=== PATIENT | female | born 1950 | race Hispanic/Latino ===

== ENCOUNTER 2018-02-16 07:53 | Day surgery (SDC) | payer OTHER, MEDICARE, SELFPAY ==
[2018-02-16] VITALS (7 sets, daily range): BP systolic 102–131; BP diastolic 52–74; PULSE 55–80; RESP 14–18; TEMP 36.4–36.8; O2SAT 95–100; BMI 29.3
--- NOTE | 2018-02-16 | COLBX_PTH ---
PATIENT: SANTIAGO CHRISTIE LOC: EN U#:[id number] AGE/SX: 67/F ROOM: RE02/16/[address]: Dr. Janes Chiu MD : 1950 BED: DIS: 02/16/2018 SPEC #: [id number] RECD: 02/16/18 11:15 STATUS: ISAEL PALMERJúnior #: [id number] ANTHONY: 02/16/18 00:[address]: Janes Chiu DEPT: SURGICAL PATHOLOGY RECD BY: Mc Laguna ENTERED: 02/16/18 13:26 SP TYPE: COLON BX OTHR DR: Dr. Jeff Chiu III, MD Tissues: Rectum, NOS Procedures: Surgery Specimen Level IV HEADER OPERATION: Colonoscopy PRE-OP DIAGNOSIS: Personal history colon CA TISSUE SUBMITTED: Rectal polyp biopsy MICROSCOPIC DIAGNOSIS Rectal polyp, biopsy: Fragments of hyperplastic polyp. SJ:enoch 02/17/18 COMMENT Please make reference to previous specimen ([id number]) sigmoid colon, colectomy with diagnosis of invasive moderately differentiated adenocarcinoma. MICROSCOPIC DESCRIPTION Slides are reviewed. GROSS DESCRIPTION Received in fixative is one container labeled with the patient's name and designated rectal polyp biopsy. The specimen consists of multiple irregular fragments of light sharpe soft tissue that in aggregate measure 0.7 x 0.3 x 0.2 cm. The specimen is totally submitted in one cassette. / RY:enoch 02/16/18 TC:1 CPT: 79752
--- NOTE | 2018-02-16 09:57 | PCM.HP.STD ---
Problem List (1) Personal history of colon cancer Status: Acute History of Present Illness Date of Admission: 02/16/18 The patient is a 67 year old F who has been feeling well. 2009 I did a left scopic sigmoid colectomy for colon cancer. Her most recent colonoscopy was 2013. A sessile polyp of the sigmoid colon was identified. She denies any abdominal pain. She denies bright red blood per rectum or melena. She has a good appetite. She presents today via the open access program. Past Medical History Allergies adhesive Allergy (Verified 02/10/18 14:44) Rash poison karla extract [Poison Karla Extract] Allergy (Verified 02/10/18 14:44) Hives skylar Adverse Reaction (Verified 02/16/18 08:25) Rash IODINE TOPICAL Allergy (Uncoded 02/10/18 14:44) Rash METAL Adverse Reaction (Uncoded 02/10/18 14:44) Rash Home Medications: Ambulatory Orders Medication Instructions Recorded Glucosamine/MSM/Chondroitin A 1 each PO DAILY 04/15/17 [Glucosamine Chondroit MSM Tab] Levothyroxine [Synthroid] 50 mcg PO DAILY 04/15/17 Polyethylene Glycol 3350 [Miralax] 17 gm PO DAILY PRN 04/15/17 L.acidoph,Paracasei, B.lactis 1 each PO DAILY 02/10/18 [Probiotic] Surgical History: - - 2009: Laparoscopic sigmoid colectomy Smoking Status: Never smoker Review of Systems Constitutional: Denies: Anorexia HEENT: Denies: Difficulty Hearing Cardiovascular: Denies: Chest Pain Respiratory: Denies: Cough Gastrointestinal: Denies: Abdominal Pain Genitourinary: Denies: Dysuria VTE Information - Inpt Only VTE Present on Admission: No Patient Problems: Active and Suspected Problems Personal history of colon cancer (Acute) - Physical Exam General: Alert, Oriented x3, Cooperative, No apparent distress HEENT: Atraumatic Oral: Moist Mucosa Neck: Supple Lungs: Clear to auscultation Cardiovascular: Regular rate, Regular Rhythm Abdomen: Bowel Sounds Present, Soft, Non Tender Extremities: No clubbing Skin: No rashes Musculoskeletal: No Tenderness to Palpation of Joints or Extremities Neurological: Cranial nerves II-XII grossly intact Vital Signs Temp Pulse Resp BP Pulse Ox 98.3 F 80 14 131/74 H 100 02/16/18 08:26 02/16/18 08:26 02/16/18 08:26 02/16/18 08:26 02/16/18 08:26 Oxygen Delivery Method Room Air Weight: 165 lb 9.074 oz Body Mass Index (BMI) 29.3 Assessment/Plan Active and Suspected Problems Personal history of colon cancer (Acute) I plan to proceed with a colonoscopy with possible biopsy or polypectomy is indicated. The patient is aware the technique, benefits, risks, alternatives. She has had an opportunity to ask and have questions answered. We will proceed as noted. Janes Chiu M.D., F.A.C.S.
--- NOTE | 2018-02-16 10:24 | PCM.OPRPT ---
Problem List (1) Personal history of colon cancer Status: Acute Report of Operation Date of Procedure: 02/16/18 Pre-Operative Diagnosis: Personal history of colon cancer Post-Operative Diagnosis: Patent colorectal anastomosis. Diminutive sessile polyp of the rectum. Scattered sigmoid diverticulosis Surgery/Procedure Performed:: Colonoscopy with cold forcep rectal polypectomy Description of Surgical Findings:: Timeout and informed consent was obtained. 67-year-old female was taken to the endoscopy room. She was placed in a left lateral decubitus position. Monitored anesthesia care was provided by Darrin Pena. Digital rectal exam performed. Moderate hemorrhoidal changes. No mass lesions. Flexible colonoscope inserted in the rectum and readily advanced to the anastomosis. The scope was advanced through the descending transverse and then the patient had to be placed supine with transabdominal pressure to get scope to go to the cecum. The cecum ileocecal valve was nicely achieved. Bowel prep was adequate. There was still some liquidy stool particularly in the left side of the colon that had to be irrigated and aspirated free. The cecum ileocecal valve was nicely achieved. The scope was carefully withdrawn through the ascending transverse and descending colon. Sigmoid diverticulosis was identified. No evidence of acute inflammatory change. The widely patent colorectal anastomosis was located at approximately 10 cm. In the mid rectum that there was a diminutive 5 mm sessile benign-appearing polyp. Cold forceps was used to sample and eradicate that lesion. Hemorrhoidal changes noted. No active bleeding. The procedure was completed with the patient tolerating it well. Impression Widely patent colorectal anastomosis without evidence of recurrence Diminutive sessile polyp of the rectum likely benign Scattered sigmoid diverticulosis Because of the patient's personal history of colon cancer likely will recommend a follow-up colonoscopy in 3 years. Previous colonoscopy was 2013. Her colectomy was in 2009. The patient will be notified of pathology results as they become available. She presented via open access Cc: Dr. Jeff Chiu, III The procedure was initiated at 1005. The cecum was reached at 1011. Procedure was completed at 1019. Janes Chiu M.D., F.A.C.S. Type of Anesthesia:: MAC
== END 2018-02-16 11:22 | disposition home or self-care (01) ==
LOC: EN 07:55 → AC 07:57
PROVIDERS: Family Provider Family Medicine; PCP Family Medicine; Visit Provider Surgery
PROC: 0DJD8ZZ Inspection of Lower Intestinal Tract, Via Natural or Artificial Opening Endoscopic (ICD-10-PCS; CPT 45378; principal; 2018-02-16 09:10)
DX: K62.1 Rectal polyp (principal); K57.30 Diverticulosis of large intestine without perforation or abscess without bleeding; Z85.038 Personal history of other malignant neoplasm of large intestine
CPT/HCPCS: 45380; 88305; J7120

== ENCOUNTER → 2019-01-03 08:25 | Outpatient (CLI) | payer MEDICARE, OTHER, SELFPAY ==
--- NOTE | 2019-01-03 08:30 | CT_ITS ---
HISTORY: LEFT CHEST MASS, HX COLON CANCER TECHNIQUE: Helically acquired images were obtained of the chest following IV contrast. A radiation dose optimization technique was used for this scan. IV Contrast dosage and agent: 100 cc Isovue-300 contrast COMPARISON: CTA chest 02/04/2015 FINDINGS: Mild linear scarring or subsegmental atelectasis at the anterior and anterolateral left lung base. No pulmonary nodule or suspicious lesion. No pulmonary infiltrate, pleural effusion, or significant pleural disease. No bronchiectasis. No hilar, mediastinal, or axillary lymph node enlargement. Thoracic aorta is normal in caliber. No pericardial effusion. The adrenal glands are not enlarged. Scattered small hepatic cysts which appear stable. The chest wall appears intact. No suspicious bony lesion seen. CT/Chest WITH Contrast IMPRESSION: 1. No metastatic lung disease or suspicious lesion identified. 2. Left basilar minor scarring or subsegmental atelectasis. 3. Small hepatic cysts, unchanged. Individualized dose optimization techniques were used for this CT. at 0641 Reported and signed by: Eric Lee MD Electronically Signed: Eric Lee, at 6:40 EST Tel , Service support ,
[2019-01-03 08:46] LABS: CREATININE FINGERSTICK 0.8 mg/dL (0.55-1.02)
== END ==
LOC: CT 08:27
PROVIDERS: Family Provider Family Medicine; PCP Family Medicine; Referring Provider Surgery; Visit Provider Surgery
DX: R22.2 Localized swelling, mass and lump, trunk (principal); Z85.038 Personal history of other malignant neoplasm of large intestine
CPT/HCPCS: 71260; Q9967

== ENCOUNTER → 2019-08-16 14:40 | Outpatient (CLI) | payer MEDICARE, OTHER, SELFPAY ==
[2019-08-16 13:47] VITALS: BMI 29.3
== END ==
PROVIDERS: Family Provider Family Medicine; PCP Family Medicine; Referring Provider Physician Assistant; Visit Provider Physician Assistant
DX: L72.3 Sebaceous cyst (principal); L08.9 Local infection of the skin and subcutaneous tissue, unspecified
CPT/HCPCS: 87070; 87205

== ENCOUNTER → 2019-12-29 08:35 | Outpatient (CLI) | payer MEDICARE, OTHER, SELFPAY ==
[2019-12-29 08:12] VITALS: BMI 28.5
[2019-12-29 09:03] LABS: Hematocrit 40.7 % (37-47); Hemoglobin 13.2 g/dL (12.0-15.0); Mean Corp Hgb Conc 32.4 g/dL (32-36); Mean Corpuscular Hgb 30.7 pg (27.0-32.0); Mean Corpuscular Volume 94.7 fL (81-99); Mean Platelet Vol. 9.2 fl (6.2-12.0); Platelet Count 248 K/mm3 (150-450); RBC Distribution Width CV 12.6 % (11.6-14.6); RBC Distribution Width SD 43.8 fl (35.1-43.9); White Blood Count 6.4 K/mm3 (4.4-11.0)
== END ==
PROVIDERS: PCP Family Medicine; Referring Provider Surgery; Visit Provider Surgery
DX: R19.7 Diarrhea, unspecified (principal); D64.9 Anemia, unspecified
CPT/HCPCS: 36415; 82274; 83630; 85027; 87493; 87506

== ENCOUNTER 2020-05-23 05:58 | Day surgery (SDC) | payer MEDICARE, OTHER, SELFPAY ==
[2019-12-29 08:12] VITALS: BMI 28.5
--- NOTE | 2020-05-10 16:08 | EKG12_ITS ---
Test Reason : PRE OP Blood Pressure : / mmHG Vent. Rate : 064 BPM Atrial Rate : 064 BPM P-R Int : 152 ms QRS Dur : 090 ms QT Int : 418 ms P-R-T Axes : 071 018 051 degrees QTc Int : 431 ms Normal sinus rhythm Nonspecific ST and T wave abnormality Abnormal ECG Confirmed by LISE SAHU, EDDIE ([id number]), film editor supervisor KARINA BENDER ([id number]) on 05/15/2020 11:14:41 AM Referred By: Carter Cota Confirmed By:EDDIE LEZAMA MD
--- NOTE | 2020-05-13 12:40 | HP.PCM_ITS ---
History and Physical History and Physical Patient Name: Julianne Ku : 1950 From: WILLOW FRANKS NP DATE OF SURGERY: 05/23/2020 SCHEDULED PROCEDURE: Minimally invasive robotic-assisted right total knee arthroplasty HISTORY OF PRESENT ILLNESS: Preoperative history and physical exam was performed on May 08, 2020. This is a 69-year-old female whose been having ongoing right knee pain for over 10 years. She describes the pain as intermittent, aching and sharp. The pain is 8 on a scale of 10. The pain is made worse with stairs, sitting for prolonged periods of time and walking. The patient reports inability to perform activities of daily living including dressing, housework and bathing. She lacks the inability to perform leisure activities such as walking. She does trip and stumble due to the pain in the knee. Previous conservative measures attempted include rest, home exercises and and nonsteroidal anti-inflammatories. She has also worn a brace with minimal relief report. The patient does ambulate with the use of a cane. The patient has been treated in the past for an abscess on her left upper chest with a staph infection. The patient states this is currently resolved. She denies fevers, chills, shortness of breath, difficulty breathing or recent infections. Surgical clearance has been obtained from Dr. Jeff Chiu III. the patient has a medical history pertinent for thyroid disease, difficulty hearing and history of colon cancer. The patient does report an allergy to adhesive including Band-Aids which causes a rash and blisters. She also states that she has a metal allergy and titanium implants will be necessary for the total knee arthroplasty. After failing conservative measures and discussing treatment options with Dr. Carter Cota the patient does wish to proceed with a right total knee arthroplasty. REVIEW OF SYSTEMS: ROS: Const: Reports change in appetite, but denies fever and weight change. CV: Denies chest pain, heart murmur and irregular heartbeat. Resp: Reports shortness of breath, but denies cough, pneumonia, tuberculosis and wheezing. GI: Denies constipation, diarrhea, heartburn, nausea, rectal itching, bloody stools and vomiting. : Denies incontinence. Musculo: Reports leg swelling, pain and trouble walking, but denies weakness. Skin: Denies Raynaud's, history of shingles and tattoo. Neuro: Denies ambulatory dysfunction, dizziness, numbness/tingling and tremor. Psych: Denies anxiety, insomnia and stress. Nils/Lymph: Denies anemia, bleeding/bruising tendency and past transfusion. Reviewed and updated. PAST MEDICAL HISTORY: Advance Care Plan: Other Directive, POA Effective Date: 04/14/2019 Other Directive, LIVING WILL Effective Date: 04/14/2019 PMH: Medical Problems: Cancer, Hard of Hearing, Thyroid Disease, Vision Problems/Blind Accidents: None Surgical Hx: Colon Resection - Dr. Rose Chiu @ [facility] Gallbladder - (1982) [facility] Bilat Ears, Cyst Removal - Ovaries, Colon Cancer Anesthesia Complications: None Assistive Devices: Glasses, Dentures, Cane - occasionally Reviewed, no changes. SOCIAL HISTORY: SH: Marital: .Occupation: Retired.Work Status: Retired.Hand Dominance: Left- handed. Personal Habits: Cigarette Use: Former.Smokeless Tobacco: Never Used Smokeless Tobacco.E-Cigarette Use: Never used.Alcohol: Weekly use.Drug Use: Denies Use.Enjoy Exercising: Exercises 1-3 X/Week. Reviewed, no changes. VITALS: Ht: 63 Wt: 167lb Wt k.751 BMI: 29.6 BP: 126/86 Pulse: 60 T: 97.1 T: 36.2C ALLERGIES: Dye With MRI Ivpdye Adhesives Metals MEDICATIONS: Famotidine 20 mg 1 by mouth every day, Promethazine HCL 12.5 mg 1-2 tablets by mouth every 6 hours, Oxycodone HCL 5 mg 1-2 tab by mouth every 4 hours, Naproxen 500 mg take 1 tablet by mouth twice daily as needed for pain, Levothyroxine Sodium 100 mcg take 1 tablet by mouth every day on empty stomach for thyroid, Glucosamine Chondroitin 500 Complex 500 Comp 1po qday, [place] 3 500 500 mg 1 tab by mouth daily, Probiotic 1 tab by mouth daily, Methylsulfonylmethane 2po qday, Vitamin D3 25 mcg (1000 Ut) 2 by mouth daily PRE-OP EXAM: General appearance:NORMAL Other: Eyes: Conjunctivae and lids: NORMAL Pupils: ERR Ears, Nose, Mouth, and Throat: NORMAL Other: Inspection of lips, teeth and gums: NORMAL Other: Respiratory: Assessment of respiratory effort: NORMAL Other: Auscultation of lungs: clear to auscultation no wheezes, rhonchi or rales. Cardiovascular: Auscultation of heart: regular rate and rhythm, no murmurs, gallops or rubs. Gastrointestinal: Exam of abdomen: soft, nontender, nondistended bowel sounds present. Neurological: see below Psychiatric: Orientation to time, place and person: NORMAL Other: Mood and affect: NORMAL Other: PHYSICAL EXAMINATION: Patient ambulates with an antalgic gait. Moderate effusion. Skin is warm, dry and intact. Tenderness over the medial joint line with palpation. Correctable varus alignment. Stable to varus and valgus stress. Range of motion: Lacks 5 extension to 95 flexion. Sensation intact to light touch. IMAGING STUDIES: 4 views of right knee including sunrise and lateral and bilateral weight-bearing AP and tunnel views obtained on April 02, 2020 reveal the right knee with varus alignment and medial joint space narrowing, subchondral sclerosis and osteophyte formation consistent with severe tricompartmental osteoarthritis. No lytic or blastic lesions appreciated. IMPRESSION: 1. Unilateral primary osteoarthritis, right knee 2. Varus deformity, right knee 3. Thyroid disease 4. History of colon cancer PLAN: Dr. Carter Cota did discuss and review with the patient all treatment options including surgical versus nonsurgical. The patient does wish to proceed with the above-stated procedure. Potential risk, benefits and complications of the procedure were discussed in detail including but not limited to , infection, nerve and blood vessel damage, persistent pain, numbness, tingling, paresthesia, blood clot, pulmonary embolism and requirement for possible further surgery. The patient expressed full understanding and has no further questions for the doctor. The patient does agree to proceed with the above-stated procedure and has signed the surgery consent form. The patient was given prescriptions for the following medications at her preoperative visit: Oxycodone, promethazine and famotidine. She was instructed to mushroom picker [id number] aspirin 81 mg, extra strength Tylenol 500 mg and senna. She was instructed to bring a walker to the hospital the day of surgery. The patient does have an adhesive allergy. She states that Band-Aids give her a rash and blisters. She also has an allergy to metal. We will proceed with titanium knee implants. Discussed with the patient the risks associated with the COVID-19 virus including the risk of exposure while at the hospital. The patient was reassured local hospitals have low infection rates and taken all necessary precautions to limit patient exposure to COVID-19. Limiting the patient's time in the hospital may decrease their exposure to COVID-19. The patient was notified that we will need to comply with any screening or testing the hospital wishes to perform and that surgery may be delayed for any positive test results. I have reviewed the [place] Automated Rx Reporting System (OARRS) report for this patient for refill pattern and other prescriber involvement as part of the appropriate surveillance for the provision of acute and chronic controlled medications. The report was requested and reviewed on the date of this entry and was considered in the prescribing process. This dictation was created using voice recognition software. Phonetic and/or grammatical errors may exist. ___ I have re-examined the patient. There are no clinical changes since date of exam. ___ See progress notes for changes. ___ Dictated on admission Date: Time: Signature:
[2020-05-23] VITALS (13 sets, daily range): BP systolic 89–150; BP diastolic 41–76; PULSE 76–87; RESP 16–20; TEMP 36–37.1; O2SAT 93–100; BMI 29.4
[2020-05-23] MEDS: Acetaminophen 500 MG Tablet 1000 MG PO ×2 (06:49→14:46)
[2020-05-23] MEDS: Gabapentin 600 MG Tablet PO (06:49)
[2020-05-23] MEDS: Celecoxib 200 MG Capsule 400 MG PO (06:49)
[2020-05-23] MEDS: Lactated Ringers 1,000 ML 100 ML IV (06:53)
[2020-05-23 07:21] LABS: Bedside Glucose 108 mg/dL (70-110)
[2020-05-23] MEDS: Scopolamine 1mg/72hr Patch 1 PATCH TD (07:31)
[2020-05-23] MEDS: Cefazolin 2 GM in 0.9% Normal Saline 100 ML IV (08:00)
[2020-05-23] MEDS: dexAMETHasone 10 MG/ML Vial IV (08:10)
--- NOTE | 2020-05-23 09:35 | OP.PCM_ITS ---
Report of Operation Date of Procedure: 05/23/20 Pre-Operative Diagnosis: Right knee primaryosteoarthritis. Metal allergy Post-Operative Diagnosis: Right knee primaryosteoarthritis. Metal allergy Surgery/Procedure Performed:: Computer navigated minimally invasive right total knee replacement Description of Surgical Findings:: Stable knee with good patella tracking terrazzo polisher: Darcy Maier Type of Anesthesia:: Spinal Anesthesiologist: José Mac Special Medications: 2 g Ancef, 1 g TXA at incision, 1 g TXA closure, 10 mg Decadron, joint cocktail (5 mg Duramorph, 30 mL of 0.5% Ropivicaine, 1000 units of epinephrine, 30 mg of Toradol) Specimen's removed: Bony cuts Estimated Blood Loss (mL): 25 Fluids Replaced: 1500 mL crystalloid Description of Procedure: Implants used: 1. Biomet Vanguard titanium size 60 cruciate retaining distal femoral component 2. Biomet Vanguard 71 mm tibial baseplate 3. Jorje Vanguard vivacit-e 10 mm anterior stabilized polyethylene 4. Jorje Biomet 34 mm symmetric patella Brief history operative indications: 69-year-old f with history of right knee osteoarthritis with radiographic findings with loss of joint space, osteophyte formation and subchondral sclerosis. Failed conservative measures as mentioned in the H&P. Discussion of total knee arthroplasty as well as risk and benefits were discussed the patient including but not limited to blood loss, DVTs, PEs, neurovascular damage, genera l risk of anesthesia including loss of life, and stiffness or instability were discussed with patient. Patient demonstrated understanding and was able to sign informed consent. Procedure: On the date of procedure patient's right lower extremity was marked in the preoperative area. The patient was then taken back to the operating room where the patient was placed on the table in the supine position. All bony prominences were identified a well-padded. Anesthesia assumed control of the C-spine and airway and remained controlled throughout the remainder of the procedure. A tourniquet was placed on the right upper thigh and the leg was prepped in a sterile fashion. The surgeon then scrubbed at this time. Upon reentering the room the right lower extremity was draped in a standard orthopedic fashion. A timeout was then called and everyone agreed upon the side, the site, the procedure to be performed, patient's identity and antibiotics given. Esmarch bandage was used to exsanguinate the extremity and the tourniquet was placed up to 250 mmHg with the knee in flexion. A midline skin incision was made and sharp dissection was taken down through skin subcutaneous tissue and fat. The standard medial parapatellar incision was made and the patella was subluxed laterally. The standard deep MCL release was done and the fat pad was resected. Next our attention was directed to the femur. Navigation pins were placed, navigation was registered. The distal femoral cutting block was pinned into place and 9 mm of distal femur resection was completed. The distal femoral cut was verified with navigation. The knee was then placed in deep flexion in the standard [employer] sizing guide was used to place the femoral component in 3? external rotation based on the posterior condyles. A size 60 4-in-1 cutting block was selected and pinned into place. The anterior cut was then made and checked for notching. The subsequent anterior chamfer cuts, posterior condylar cuts and posterior chamfer cuts were made while ensuring the MCL and LCL were protected. Our attention was then turned to the tibia where the navigation pins were placed, navigation was registered. [employer] tibial cutting guide was used to make the appropriate tibial cut 90 degrees from the mechanical axis. Navigation was then used to verify the cut. A size 71mm tibial base plate was selected. the knee was flexed to 90 degrees and the soft tissues and posterior osteophytes were removed from the joint. 40 cc of the periarticular injection was injected into the posterior medial corner of the joint. The appropriate trials were then placed on the femur and tibia. A trial polyethylene was trialed to ensure proper balancing and stability of the knee. Patella tracking, was then verified and corrected appropriately as needed. The appropriate tibial internal rotation was then marked with a bovie. Our attention was then directed to the patella. The patella was everted and a flat resection was made. The lug holes were drilled and the patella trial was placed. Patellar tracking was checked and deemed appropriate. Once we were happy lug holes were drilled for the femur and trial components were removed. the tibia was subluxed and pinned into place and the keel was punched and the canal was reamed. Final components were verified and opened, and cement was mixed in a vacuum. Angelika Simplex cement was used. The wound was copiously irrigated with normal saline. When the cement was ready the components were cemented into place starting with the tibia, femur and finally the patella. The trial poly component was placed and the knee was placed in full extension. All excess cement was removed in the process. Once the cement had cured the tracking, alignment and balance were verified and a size 10 mm polyethylene component was placed. Once the final components were placed the wound was copiously irrigated with normal saline solution and the periarticular injection was given. The wound was closed in a layer shukla fashion using #1 vicryl interrupted sutures for the arthrotomy, 2-0 interrupted Vicryl suture for the subcuticular layer and peyton for final skin closure. A sterile compressive dressing was then placed. The patient was then awakened from anesthesia, transferred to the [place] and transferred to the PACU for recovery. Post op plan DVT ppx: ASA 1 mg twice daily, thigh high compression stockings Follow up: in office in 2 weeks for wound check PT: to start POD #0 at hospital, outpatient PT should be arranged. Grafts/Implants Used: Biomet Vanguard titanium - Complications No intraoperative complications - Admit VTE Documentation VTE Present on Admission: No VTE Mechan Device Prophylaxis: SCD's, Thigh High LÁZARO Hose VTE Pharm Prophylaxis ordered?: Yes
[2020-05-23] MEDS: Lactated Ringers 1,000 ML 500 ML IV ×2 (10:11→11:32)
--- NOTE | 2020-05-23 10:11 | RAD_ITS ---
STUDY: X-RAY - RIGHT KNEE REASON FOR EXAM: Female, 69 years old. POST OP TECHNIQUE: AP and lateral view(s) of the knee. COMPARISON: None. FINDINGS: Normal visualized distal femur. Normal visualized proximal tibia and fibula. Normal proximal tibiofibular articulation. The patient is status post total knee replacement. There is good alignment. Postoperative soft tissue changes. RAD/Knee 1 or 2 Views IMPRESSION: Status post total knee replacement. There is good alignment. Postoperative soft tissue changes. Electronically Signed: oHwie Lock, at 13:01 EDT , Service support ,
[2020-05-23] MEDS: Cefazolin 1 GM/50 ML BAG IV (14:20)
== END 2020-05-23 16:16 | disposition home or self-care (01) ==
LOC: SDC 05:59 → AC 05:59
PROVIDERS: Anesthesiology; PCP Family Medicine; Referring Provider Specialist; Visit Provider Specialist
PROC: (CPT 27447; principal; 2020-05-23 07:30)
DX: M17.11 Unilateral primary osteoarthritis, right knee (principal); E07.9 Disorder of thyroid, unspecified; M21.161 Varus deformity, not elsewhere classified, right knee; Z79.1 Long term (current) use of non-steroidal anti-inflammatories (NSAID); Z85.038 Personal history of other malignant neoplasm of large intestine
CPT/HCPCS: 27447; 73560; 82962; 87081; 87635; 93005; 97162; 97166; C1776; G2023; J7120; A4216; J2405; U0003

== ENCOUNTER 2021-03-13 05:25 | Day surgery (SDC) | payer MEDICARE, OTHER, SELFPAY ==
[2020-05-23 06:31] VITALS: BMI 29.4
--- NOTE | 2021-02-18 12:40 | PCM.HP.BLA ---
History and Physical History and Physical [facility] Patient Name: Julianne Ku : 1950 From: SUNSHINE MCKEON PA-C DATE OF SURGERY: 03/13/2021 SCHEDULED PROCEDURE: left total knee arthroplasty HISTORY OF PRESENT ILLNESS: Preoperative history and physical exam was performed on February 18, 2021. This is a 70-year-old female who is been having ongoing pain in the left knee for several months. Her pain can reach 10/10 with activities. Pain has been constant, sharp. Pain is increased with going up and down stairs and walking. Patient's pain is primarily over the medial aspect of the knee. Pain does awaken her at night. She has difficulty with any activities of daily living that require bending of her knee. She feels unsafe climbing stairs. She has attempted conservative measures including rest, heat, elevation with minimal relief. She has been through physical therapy and home exercises with minimal relief. She has been on oral nonsteroidal anti-inflammatories including meloxicam with minimal relief. She has had a previous right total knee arthroplasty on May 23, 2020 and is doing well postoperatively. She denies any previous surgical intervention on her left knee. Denies any recent chest pain, shortness of breath, fevers chills, or recent infections. She has medical history pertinent for thyroid disease. We are obtaining surgical clearance from the primary care physician Dr. Chiu. After failing conservative measures and discussing all treatment options with Dr. Carter Cota, the patient does wish to proceed with a left total knee arthroplasty. REVIEW OF SYSTEMS: ROS: Const: Reports change in appetite, but denies fever and weight change. CV: Denies chest pain, heart murmur and irregular heartbeat. Resp: Reports shortness of breath, but denies cough, pneumonia, tuberculosis and wheezing. GI: Denies constipation, diarrhea, heartburn, nausea, rectal itching, bloody stools and vomiting. : Denies incontinence. Musculo: Reports leg swelling, pain and trouble walking, but denies weakness. Skin: Denies Raynaud's, history of shingles and tattoo. Neuro: Denies ambulatory dysfunction, dizziness, numbness/tingling and tremor. Psych: Denies anxiety, insomnia and stress. Nils/Lymph: Denies anemia, bleeding/bruising tendency and past transfusion. Reviewed, no changes. PAST MEDICAL HISTORY: Advance Care Plan: Other Directive, POA Effective Date: 04/14/2019 Other Directive, LIVING WILL Effective Date: 04/14/2019 PMH: Medical Problems: Cancer, Hard of Hearing, Thyroid Disease, Vision Problems/Blind Accidents: None Surgical Hx: Colon Resection - Dr. Rose Chiu @ [facility] Gallbladder - (1982) [facility] Bilat Ears, Cyst Removal - Ovaries, Colon Cancer RT TKR - (05/23/2020) SAW @ [facility] Anesthesia Complications: None Assistive Devices: Glasses, Dentures Reviewed and updated. SOCIAL HISTORY: SH: Marital: .Occupation: Retired.Work Status: Retired.Hand Dominance: Left-handed. Personal Habits: Cigarette Use: Former.Smokeless Tobacco: Never Used Smokeless Tobacco.E-Cigarette Use: Never used.Alcohol: Weekly use.Drug Use: Denies Use.Enjoy Exercising: Exercises 1-3 X/Week. Reviewed, no changes. VITALS: Ht: 63 Wt: 170lb Wt k.112 BMI: 30.1 BP: 128/76 Pulse: 78 Resp: 14 T: 96.3 T: 35.7C Pain Level: 0 ALLERGIES: Dye With MRI Ivpdye Adhesives Metals MEDICATIONS: Oxycodone HCL 5 mg 1-2 tab by mouth every 4 hours, Promethazine HCL 12.5 mg 1-2 tablets by mouth every 6 hours, Famotidine 20 mg 1 by mouth every day, Meloxicam 7.5 mg take 1 tablet twice daily with food, Vitamin D3 25 mcg (1000 Ut) 2 by mouth daily, Levothyroxine Sodium 100 mcg 1 by mouth every day PRE-OP EXAM: General appearance:NORMAL Other: Eyes: Conjunctivae and lids: NORMAL Pupils: ERR Ears, Nose, Mouth, and Throat: NORMAL Other: Inspection of lips, teeth and gums: NORMAL Other: Neck: Examination of neck: no masses noted. Respiratory: Assessment of respiratory effort: NORMAL Other: Auscultation of lungs: clear to auscultation no wheezes, rhonchi or rales. Cardiovascular: Auscultation of heart: regular rate and rhythm, positive systolic murmur. Exam of carotid arteries: NORMAL Other: Gastrointestinal: Exam of abdomen: soft, nontender, nondistended bowel sounds present. PHYSICAL EXAMINATION: On exam of the left knee it is cool to touch without erythema or signs of infection. She has tenderness to palpation along the medial aspect of the knee. Varus alignment which is correctable on exam. Range of motion: Lacks 3 of full extension to 110 flexion. Sensation intact to light touch. Stable to anterior/posterior drawer. IMAGING STUDIES: Previous x-rays of the left knee reveal varus alignment with medial joint space narrowing, subchondral sclerosis, osteophyte formation consistent with severe stage IV tricompartmental osteoarthritis. There are bony erosions of the medial compartment. IMPRESSION: 1. Severe left knee tricompartmental osteoarthritis 2. Presence of right total knee arthroplasty 3. Thyroid disease 4. History of colon cancer PLAN: Dr. Carter Cota did discuss and review with the patient all treatment options including surgical versus nonsurgical options. Patient does wish to proceed with the above-stated procedure. Potential risks, benefits, and complications of the procedure were discussed in detail including but not limited to , infection, nerve and blood vessel damage, persistent pain, numbness, tingling, paresthesias, blood clot, pulmonary embolism, and requirement for possible further surgery. The patient expressed full understanding and has no further questions for the doctor. Patient does agree to proceed with the above-stated procedure and has signed the surgery consent form. We discussed the current risks associated with COVID 19. This does include the risk of exposure while in the hospital. Patient was reassured local hospitals have low infection rates and are taking all necessary precautions to avoid exposure to patients. In addition, we discussed strategies that can be used to help limit exposure including those that limit the patient's time in the hospital. Also using strategies to limit the patient's need for continued inpatient services after being discharged from the hospital. Patient was notified that we will need to comply with any screening or testing the hospital wishes to perform or that surgery may be delayed for any positive results. This dictation was created using voice recognition software. Phonetic and/or grammatical errors may exist. ___ I have re-examined the patient. There are no clinical changes since date of exam. ___ See progress notes for changes. ___ Dictated on admission Date: Time: Signature:
[2021-03-04 13:37] LABS: Absolute Lymphocyte Count 1.14 X10^3/uL (0.83-4.51); Absolute Neutrophil Count 5.1 X10^3/uL (2.0-7.7); Basophil# 0.02 X10^3/uL; Basophil% 0.3 % (0-1); Eosinophil# 0.04 X10^3/uL; Eosinophils% 0.6 % (0-5); Hematocrit 39.5 % (37-47); Hemoglobin 12.5 g/dL (12.0-15.0); Lymphocyte # 1.14 X10^3/ul (0.83-4.51); Mean Corp Hgb Conc 31.6 g/dL (32-36); Mean Corpuscular Hgb 30.2 pg (27.0-32.0); Mean Corpuscular Volume 95.4 fL (81-99); Mean Platelet Vol. 9.4 fl (6.2-12.0); Monocyte# 0.44 X10^3/uL; Monocyte% 6.6 % (0-10); NRBC Flagged by Analyzer 0 % (0-5); Neutrophil # 5.05 X10^3/uL (2.7-7.7); Neutrophil % 75.2 % (47-70); Platelet Count 225 K/mm3 (150-450); RBC Distribution Width CV 13.5 % (11.6-14.6); RBC Distribution Width SD 46.9 fl (35.1-43.9); Red Blood Count 4.14 M/mm3 (4.2-5.4); White Blood Count 6.7 K/mm3 (4.4-11.0)
[2021-03-04 14:10] LABS: Anion Gap 4 (5-15); BUN 15 mg/dL (7-18); BUN/Creat Ratio 16.3 RATIO (10-20); Calcium,Total 8.3 mg/dL (8.5-10.1); Chloride 106 mmol/L (98-107); Creatinine, Serum 0.92 mg/dL (0.55-1.02); EST Glomerular Filtration Rate 64 mL/min (>60); Est Glom Filt Rate - Afr Amer 77 mL/min (>60); Glucose 109 mg/dL (74-106); Potassium 3.4 mmol/L (3.5-5.1); Sodium Level 139 mmol/L (136-145)
[2021-03-04 14:28] LABS: Thyroid Stim Hormone (TSH) 0.98 uIU/mL (0.358-3.74)
[2021-03-05 12:02] LABS: Albumin, Serum 3.6 g/dL (3.2-5.0)
[2021-03-13] VITALS (11 sets, daily range): BP systolic 99–157; BP diastolic 51–95; PULSE 66–84; RESP 16–18; TEMP 36.1–37.3; O2SAT 93–100; BMI 30.2
[2021-03-13] MEDS: Gabapentin 600 MG Tablet PO (05:05)
[2021-03-13] MEDS: Celecoxib 200 MG Capsule 400 MG PO (06:10)
[2021-03-13] MEDS: Acetaminophen 500 MG Tablet 1000 MG PO ×2 (06:11→14:00)
[2021-03-13] MEDS: Lactated Ringers 1,000 ML 999 ML IV ×2 (06:11→10:31)
[2021-03-13 06:15] LABS: Bedside Glucose 104 mg/dL (70-110)
[2021-03-13] MEDS: Cefazolin 2 GM in 0.9% Normal Saline 100 ML IV (07:27)
[2021-03-13] MEDS: dexAMETHasone 10 MG/ML Vial IV (07:40)
--- NOTE | 2021-03-13 09:01 | PCM.OPRPT ---
Report of Operation Date of Procedure: 03/13/21 Pre-Operative Diagnosis: Left knee primary osteoarthritis Post-Operative Diagnosis: Left knee primary osteoarthritis Surgery/Procedure Performed:: Left knee minimally invasive computer navigated total knee replacement Description of Surgical Findings:: Stable knee with good patella tracking proposal review analyst: Darcy Maier Type of Anesthesia: Spinal Anesthesiologist: Chato Adan Special Medications: 2 g Ancef, 1 g TXA at incision, 1 g TXA closure, 10 mg Decadron, joint cocktail (5 mg Duramorph, 30 mL of 0.5% Ropivicaine, 1000 units of epinephrine, 30 mg of Toradol) Specimen's removed: Bony cuts Estimated Blood Loss (mL): 25 Fluids Replaced: 800 mL crystalloid Description of Procedure: Implants used: 1. [employer] CR Vanguard size 60 mm femoral component, left 2. [employer] 71 mm Vanguard keel tibia 3. [employer] vitamin E 10 mm polyethylene insert 4. [employer] thin 34 mm patella Brief history operative indications: 70-year-old F with history of left knee osteoarthritis with radiographic findings with loss of joint space, osteophyte formation and subchondral sclerosis. Failed conservative measures as mentioned in the H&P. Discussion of total knee arthroplasty as well as risk and benefits were discussed the patient including but not limited to blood loss, DVTs, PEs, neurovascular damage, general risk of anesthesia including loss of life, and stiffness or instability were discussed with patient. Patient demonstrated understanding and was able to sign informed consent. Procedure: On the date of procedure patient's left lower extremity was marked in the preoperative area. The patient was then taken back to the operating room where the patient was placed on the table in the supine position. All bony prominences were identified a well-padded. Anesthesia assumed control of the C-spine and airway and remained controlled throughout the remainder of the procedure. A tourniquet was placed on the left upper thigh and the leg was prepped in a sterile fashion. The surgeon then scrubbed at this time .Upon reentering the room left lower extremity was draped in a standard orthopedic fashion. A timeout was then called and everyone agreed upon the side, the site, the procedure to be performed, patient's identity and antibiotics given. Esmarch bandage was used to exsanguinate the extremity and the tourniquet was placed up to 250 mmHg with the knee in flexion. A midline skin incision was made and sharp dissection was taken down through skin subcutaneous tissue and fat. The standard medial parapatellar incision was made and the patella was subluxed laterally. The standard deep MCL release was done and the fat pad was resected. Next our attention was directed to the femur. Navigation pins were placed, navigation was registered. The distal femoral cutting block was pinned into place and mm of distal femur resection was completed. The distal femoral cut was verified with navigation. The knee was then placed in deep flexion in the standard Adtuitive sizing guide was used to place the femoral component in 3? external rotation based on the posterior condyles. A size 60 mm femoral component 4-in-1 cutting block was selected and pinned into place. The anterior cut was then made and checked for notching. The subsequent anterior chamfer cuts, posterior condylar cuts and posterior chamfer cuts were made while ensuring the MCL and LCL were protected. 9 Our attention was then turned to the tibia where the navigation pins were placed, navigation was registered. Sutus tibial cutting guide was used to make the appropriate tibial cut 90 degrees from the mechanical axis. Navigation was then used to verify the cut. A size tibial base plate was selected. the knee was flexed to 90 degrees and the soft tissues and posterior osteophytes were removed from the joint. 40 cc of the periarticular injection was injected into the posterior medial corner of the joint.71 millimeter tibial baseplate was selected The appropriate trials were then placed on the femur and tibia. A trial polyethylene was trialed to ensure proper balancing and stability of the knee. Patella tracking, was then verified and corrected appropriately as needed. The appropriate tibial internal rotation was then marked with a bovie. Our attention was then directed to the patella. The patella was everted and a flat resection was made. The lug holes were drilled and the patella trial was placed. Patellar tracking was checked and deemed appropriate. Once we were happy lug holes were drilled for the femur and trial components were removed. the tibia was subluxed and pinned into place and the keel was punched and the canal was reamed. Final components were verified and opened, and cement was mixed in a vacuum. Angelika Simplex cement was used. The wound was copiously irrigated with normal saline. When the cement was ready the components were cemented into place starting with the tibia, femur and finally the patella. The trial poly component was placed and the knee was placed in full extension. All excess cement was removed in the process. Once the cement had cured the tracking, alignment and balance were verified and a size 10 mm polyethylene component was placed. Once the final components were placed the wound was copiously irrigated with normal saline solution and the periarticular injection was given. The wound was closed in a layer shukla fashion using #1 vicryl interrupted sutures for the arthrotomy, 2-0 interrupted Vicryl suture for the subcuticular layer and peyton for final skin closure. A sterile compressive dressing was then placed. The patient was then awakened from anesthesia, transferred to the [place] and transferred to the PACU for recovery. Post op plan DVT ppx: ASA 81 mg twice daily, thigh high compression stockings Follow up: in office in 2 weeks for wound check PT: to start POD #0 at hospital, outpatient PT should be arranged. Complications No intraoperative complications Admit VTE Documentation VTE Present on Admission: No VTE Mechan Device Prophylaxis: SCD's and Thigh High LÁZARO Hose VTE Pharm Prophylaxis ordered?: Yes
--- NOTE | 2021-03-13 10:00 | RAD_ITS ---
STUDY: X-RAY - LEFT KNEE REASON FOR EXAM: Postop left total knee arthroplasty. TECHNIQUE: 2 view(s) of the knee. COMPARISON: None. FINDINGS: There is a left total knee arthroplasty without evidence of complication. There is postoperative gas in the soft tissues overlying skin peyton. There is vascular calcification. RAD/Knee 1 or 2 Views IMPRESSION: Uncomplicated left total knee arthroplasty. Electronically Signed: Matteo Brown MD at 14:55 EDT Tel , Service support ,
[2021-03-13] MEDS: Lactated Ringers 1,000 ML 125 ML IV ×2 (10:45→13:04)
[2021-03-13] MEDS: Cefazolin 1 GM/50 ML BAG IV (14:00)
[2021-03-13] MEDS: oxyCODONE 5 MG Tablet PO (14:08)
--- NOTE | 2021-03-13 15:26 | SUR.PHASEII ---
REVIEWED D/C INSTRUCTIONS IN GREAT DETAIL WITH PATIENT AND DAUGHTER, GRETEL, WHO HAD MULTIPLE QUESTIONS WHICH WERE EACH ADDRESS. AMBULATED WITH PT/OT EARLIER SUCCESSFULLY, NOW AMBULATED SAFELY TO BATHROOM WITH WALKER AND ASSIST. INSTRUCTED ON INCENTIVE SPIROMETRY. VSS. PATIENT THEN ASKED FOR A MEAL PRIOR TO D/C HOME.
== END 2021-03-13 16:19 | disposition home or self-care (01) ==
LOC: SDC 05:25 → AC 05:26
PROVIDERS: Anesthesiology; PCP Family Medicine; Referring Provider Specialist; Visit Provider Specialist
PROC: (CPT 27447; principal; 2021-03-13 07:00)
DX: M17.12 Unilateral primary osteoarthritis, left knee (principal); E03.9 Hypothyroidism, unspecified; E55.9 Vitamin D deficiency, unspecified; Z85.038 Personal history of other malignant neoplasm of large intestine; Z79.1 Long term (current) use of non-steroidal anti-inflammatories (NSAID); Z96.653 Presence of artificial knee joint, bilateral; Z87.42 Personal history of other diseases of the female genital tract; Z90.49 Acquired absence of other specified parts of digestive tract
CPT/HCPCS: 01402; 27447; 36415; 73560; 80048; 82040; 82962; 83735; 84443; 85025; 87081; 87426; 97162; C1776; C9803; J7120; J2405

== ENCOUNTER 2022-04-16 05:23 | Day surgery (SDC) | payer MEDICARE, SELFPAY ==
--- NOTE | 2022-03-28 07:45 | PCM.HP.BLA ---
History and Physical History and Physical [facility] Patient Name: Julianne Ku : 1950 From: SUNSHINE MCKEON PA-C DATE OF SURGERY: 04/16/2022 SCHEDULED PROCEDURE: left total hip arthroplasty HISTORY OF PRESENT ILLNESS: Preoperative history and physical exam was performed on March 27, 2022. This is a 71-year-old female who is been having ongoing pain in her left hip since 2009. Her pain can reach his highs and 8/10. Pain is been intermittent and sharp. Pain is increased with walking, stairs, and sitting. She does have start up pain. Pain is located in the left groin. She has difficulty with getting dressed putting on her socks and shoes. Patient denies pain waking her at night. She has tried conservative measures including rest, heat, weight loss with minimal relief. She has been through home exercises with minimal relief. She has tried oral medications including Tylenol, as well as glucosamine and chondroitin. Patient denies previous surgery on the left hip. She has undergone bilateral total knee replacements over the past [address] Carter Cota and doing well from those procedures. She currently denies any chest pain, shortness of breath, fevers chills or recent infections. She does report new onset of dizziness. She may feel it's from medications. She has been using naproxen. We are obtaining surgical clearance from the primary care physician. Recommending inpatient follow-up in person with primary care physician for appropriate workup. After failing conservative measures and discussion with Dr. Carter Cota, the patient does wish to proceed with a left total hip arthroplasty as long as medically cleared. REVIEW OF SYSTEMS: Review Of Systems: Constitutional: Reports change in appetite, but denies fever and weight change. Cardiovasular: Denies chest pain, heart murmur and irregular heartbeat. Respiratory: Reports shortness of breath, but denies cough, pneumonia, tuberculosis and wheezing. Gastrointestinal: Reports constipation, but denies diarrhea, heartburn, nausea, rectal itching, bloody stools and vomiting. Genitourinary: Denies incontinence. Musculoskeletal: Reports leg swelling, pain and trouble walking, but denies weakness. Skin: Denies Raynaud's, history of shingles and tattoo. Neurological: Reports dizziness but denies ambulatory dysfunction, numbness/tingling and tremor. Psychiatric: Denies anxiety, insomnia and stress. Hematologic/Lymphatic: Denies anemia, bleeding/bruising tendency and past transfusion. Reviewed and updated. PAST MEDICAL HISTORY: Advance Care Plan: Other Directive, POA Effective Date: 04/14/2019 Other Directive, LIVING WILL Effective Date: 04/14/2019 Past Medical History: Medical Problems: Cancer, Hard of Hearing, Thyroid Disease, Vision Problems/Blind Accidents: None Surgical Hx: Colon Resection - Dr. Rose Chiu @ [facility] Gallbladder - (1982) [facility] Bilat Ears, Cyst Removal - Ovaries, Colon Cancer RT TKR - (05/23/2020) SAW @ [facility] Knee Replacement LT - (03/13/2021) COMP NAVIGATED SAW AT [facility] Anesthesia Complications: None Assistive Devices: Glasses, Dentures Reviewed, no changes. SOCIAL HISTORY: Social History: Marital: .Occupation: Retired.Work Status: Retired.Hand Dominance: Left-handed. Personal Habits: Cigarette Use: Former.Smokeless Tobacco: Never Used Smokeless Tobacco.E-Cigarette Use: Never used.Alcohol: Weekly use.Drug Use: Denies Use.Enjoy Exercising: Exercises 1-3 X/Week. Reviewed, no changes. VITALS: Ht: 62.3 Wt: 162lb 4oz Wt k.597 BMI: 29.4 BP: 130/72 Pulse: 71 Resp: 16 T: 98.9 T: 37.2C Pain Level: 0 O2SatR: 97 ALLERGIES: Dye With MRI Ivpdye Adhesives Metals MEDICATIONS: Oxycodone HCL 5 mg 1-2 tab by mouth every 4 hours, Meloxicam 7.5 mg 1 by mouth twice a day, Famotidine 20 mg 1 by mouth every day, Zofran 4 mg one by mouth every 8 as needed nausea, Levothyroxine Sodium 100 mcg 1 by mouth every day, MSM-Glucosamine 250-250 mg, Vitamin D3 25 mcg (1000 Ut) 2 by mouth every day, Glucosamine Chondroitin 1500 Complex 1500 Com as directed on bottle, Naproxen 500 mg 1 by mouth twice a day as needed with food, Vitamin B-12 1000 mcg, Calcium 600 600 mg, Multivitamin 1 by mouth every day PRE-OP EXAM: General appearance:NORMAL Other: Eyes: Conjunctivae and lids: NORMAL Pupils: ERR Ears, Nose, Mouth, and Throat: NORMAL Other: Inspection of lips, teeth and gums: NORMAL Other: Neck: Examination of neck: no masses noted. Respiratory: Assessment of respiratory effort: NORMAL Other: Auscultation of lungs: clear to auscultation no wheezes, rhonchi or rales. Cardiovascular: Auscultation of heart: regular rate and rhythm, no murmurs, gallops or rubs. PHYSICAL EXAMINATION: Patient does walk with an antalgic gait. She has tenderness to palpation over the lateral left hip. Left hip range of motion: 75 flexion, internal rotation 15, external rotation 15. Pain is reproduced with range of motion. Sensation intact to light touch. IMAGING STUDIES: Previous x-rays of the left hip reveal joint space narrowing, subchondral sclerosis, osteophyte formation consistent with moderate to severe stage III osteoarthritis with a large acetabular pincer lesion IMPRESSION: 1. Left hip osteoarthritis 2. Thyroid disease 3. Previous colon cancer with previous surgery PLAN: Dr. Carter Cota did discuss and review with the patient all treatment options including surgical versus nonsurgical options. Patient does wish to proceed with the above-stated procedure. Potential risks, benefits, and complications of the procedure were discussed in detail including but not limited to , infection, nerve and blood vessel damage, persistent pain, numbness, tingling, paresthesias, blood clot, pulmonary embolism, and requirement for possible further surgery. The patient expressed full understanding and has no further questions for the doctor. Patient does agree to proceed with the above-stated procedure and has signed the surgery consent form. We discussed the current risks associated with COVID 19. This does include the risk of exposure while in the hospital. Patient was reassured local hospitals have low infection rates and are taking all necessary precautions to avoid exposure to patients. In addition, we discussed strategies that can be used to help limit exposure including those that limit the patient's time in the hospital. Also using strategies to limit the patient's need for continued inpatient services after being discharged from the hospital. Patient was notified that we will need to comply with any screening or testing the hospital wishes to perform or that surgery may be delayed for any positive results. This dictation was created using voice recognition software. Phonetic and/or grammatical errors may exist. ___ I have re-examined the patient. There are no clinical changes since date of exam. ___ See progress notes for changes. ___ Dictated on admission Date: Time: Signature:
--- NOTE | 2022-04-08 10:13 | EKG12_ITS ---
Test Reason : PREOP Blood Pressure : / mmHG Vent. Rate : 060 BPM Atrial Rate : 060 BPM P-R Int : 154 ms QRS Dur : 088 ms QT Int : 438 ms P-R-T Axes : 059 013 019 degrees QTc Int : 438 ms Normal sinus rhythm Normal ECG Confirmed by TUTU SAHU, ZAKI ([id number]), senior editor KARINA BENDER ([id number]) on 04/08/2022 1:41:34 PM Referred By: aCrter Cota Confirmed By:ZAKI CAM MD
[2022-04-08 11:07] LABS: Absolute Lymphocyte Count 0.97 X10^3/uL (0.83-4.51); Absolute Neutrophil Count 3.4 X10^3/uL (2.0-7.7); Basophil# 0.01 X10^3/uL; Basophil% 0.2 % (0-1); Eosinophil# 0.11 X10^3/uL; Eosinophils% 2.2 % (0-5); Hemoglobin 13.3 g/dL (12.0-15.0); Lymphocyte # 0.97 X10^3/ul (0.83-4.51); Lymphocyte % 19.4 % (19-41); Mean Corp Hgb Conc 32.4 g/dL (32-36); Mean Corpuscular Hgb 31.7 pg (27.0-32.0); Mean Corpuscular Volume 97.9 fL (81-99); Mean Platelet Vol. 9.4 fl (6.2-12.0); Monocyte# 0.47 X10^3/uL; Monocyte% 9.4 % (0-10); NRBC Flagged by Analyzer 0 % (0-5); Neutrophil # 3.42 X10^3/uL (2.7-7.7); Neutrophil % 68.6 % (47-70); Platelet Count 241 K/mm3 (150-450); RBC Distribution Width SD 45.7 fl (35.1-43.9); Red Blood Count 4.19 M/mm3 (4.2-5.4)
[2022-04-08 11:18] LABS: Prothrombin Time (Protime)PT. 13.2 SECONDS (11.7-14.9)
[2022-04-08 11:19] LABS: Partial Thromboplast Time 27.6 Seconds (24.1-36.2)
[2022-04-08 11:36] LABS: Anion Gap 3 (5-15); BUN 17 mg/dL (7-18); BUN/Creat Ratio 17.3 RATIO (10-20); Calcium,Total 9.1 mg/dL (8.5-10.1); Chloride 108 mmol/L (98-107); Creatinine, Serum 0.98 mg/dL (0.55-1.02); EST Glomerular Filtration Rate 59 mL/min (>60); Est Glom Filt Rate - Afr Amer 72 mL/min (>60); Glucose 88 mg/dL (74-106); Potassium 4.3 mmol/L (3.5-5.1); Sodium Level 139 mmol/L (136-145)
[2022-04-08 11:50] LABS: AST(SGOT) 27 U/L (15-37); Alanine Aminotransfer ALT/SGPT 30 U/L (13-56); Albumin, Serum 3.7 g/dL (3.2-5.0); Alkaline Phosphatase 92 U/L (45-117); Bilirubin, Direct 0.09 mg/dL (0.00-0.30); Globulin 3.4 g/dL (2.2-4.2); Magnesium 1.9 mg/dL (1.6-2.6); Protein, Total 7.1 g/dL (6.4-8.2)
[2022-04-16] VITALS (12 sets, daily range): BP systolic 84–158; BP diastolic 39–82; PULSE 61–79; RESP 16–17; TEMP 36.2–36.8; O2SAT 96–100; BMI 30.7
[2022-04-16 06:11] LABS: Bedside Glucose 132 mg/dL (74-106)
[2022-04-16] MEDS: Magnesium Sulfate 2 GM IV IV (06:15)
[2022-04-16] MEDS: Acetaminophen 500 MG Tablet 1000 MG PO ×2 (06:16→13:59)
[2022-04-16] MEDS: Gabapentin 600 MG Tablet PO (06:16)
[2022-04-16] MEDS: Celecoxib 200 MG Capsule 400 MG PO (06:16)
[2022-04-16] MEDS: Lactated Ringers 1,000 ML 15 ML IV (06:25)
--- NOTE | 2022-04-16 07:08 | OP.PCM_ITS ---
Report of Operation Date of Procedure: 04/16/22 Pre-Operative Diagnosis: Left hip primary osteoarthritis Post-Operative Diagnosis: Left hip primary osteoarthritis Surgery/Procedure Performed:: Left minimally invasive direct anterior hip replacement Description of Surgical Findings:: Stable hip with equal leg lengths Surgeon: Carter Cota chilling hood operator: Milton Alvarez Type of Anesthesia: Spinal Anesthesiologist: Dell Griffith Special Medications: 2 g Ancef, 1 g TXA at incision, 1 g TXA closure, 10 mg Decadron, joint cocktail (5 mg Duramorph, 30 mL of 0.5% Ropivicaine, 1000 units of epinephrine, 30 mg of Toradol) Specimen's removed: Bony cuts Estimated Blood Loss (mL): 150 Fluids Replaced: 1000 mL crystalloid Description of Procedure: Components used: 1. Insignia [place] femoral stem size 1 standard 2. Angelika trident 2 acetabular shell size 52 mm 3. [place] X3 polyethylene e 4. [place] Biolox delta 36mm, -2.5mm femoral head Brief history operative indications: 71 yo F who failed conservative measures for their hip osteoarthritis. X-rays were consistent with osteoarthritis including joint space narrowing, osteophyte formation and subchondral cysts. Total hip replacement was discussed with the patient with risks and benefits including but not limited to blood loss, DVTs, PEs, neurovascular damage, dislocation, general risks of anesthesia including loss of life. Patient demonstrated an understanding medical clearance is obtained the patient was consented for surgery. Procedure: On the date of procedure the patient's L hip was marked in the preoperative area. Patient was then taken back to the operating room where anesthesia assumed control of the C-spine and airway and administered anesthetic. Patient was transferred to the operating table and placed in the supine position. The hips were placed at the break of the bed and a sacral bump was placed. L The lower extremity was then prepped out in a sterile fashion using chlorhexidine while the surgeon scrubbed. The PA was vital in the positioning of the patient. Upon reentering the room the left lower extremity was draped in the standard orthopedic fashion and the incision was marked. A timeout was called and everyone agreed upon the side, the site, the procedure be performed, antibody given, and patient's identity. At this time incision was made through skin, subcutaneous tissue, and fat down to fascia. The fascia was then incised and the TFL was retracted laterally. A retractor was placed on the lateral border of the femoral neck. Attention was directed to the inferior portion of the approach and all crossing vessels were identified and appropriately coagulated. A retractor was then placed on the medial portion of the femoral neck. The anterior capsule was then cleared of all soft tissue and then H shaped capsulotomy was made. The retractors were then placed inside the capsule. The femoral neck was identified and a cleanup cut was made. At this time a power corkscrew was used to remove the femoral head. Attention was then turned toward the acetabulum where the soft tissues were appropriately retracted and the acetabulum was sequentially reamed to 52 mm. A 52 mm cup was then selected and impacted into place. Acetabular liner was impacted into place and locking mechanism was verified. The position of the acetabular cup was then verified under live fluoroscopy. Attention was then turned to the femur. Soft tissue releases on the medial and lateral femoral neck were appropriately done, the leg was externally rotated and lateralized. A Johnson retractor was placed medially and proximally to the greater trochanter this allowed appropriate visualization and exposure of the femoral canal. Rongeour was then used to remove excess lateral bone. A canal finder and entry broach were used to open the proximal canal. Once we verified we were down the femoral canal we subsequently broached up to a size 1 femur. The appropriate neck was placed in the previously selected head was trialed with a -2.5 mm neck. Traction was pulled and the hip was reduced with internal rotation. Once it was appropriately reduced and stability was checked. There was minimal shuck, equal leg lengths and appropriate stability with hyperextension and external rotation as well as with 90? flexion and internal rotation. Fluoroscopy was then also used to verify the position of the components and leg lengths using the contralateral side for comparison. The trial components were then dislocated the proximal femur was again exposed and the components were removed from the wound. The final components were verified and opened. The wound was copiously irrigated out with normal saline. The acetabulum was checked for any residual debris. The final components were placed and impacted. Traction and internal rotation were again used to reduce the hip. After adequate reduction the hip remained stable with appropriate leg lengths. The final components were once again checked with live fluoroscopy and were found to be satisfactory. The wound was then copiously irrigated with normal saline once more, and hemostasis was obtained. Closure was then done using #1 Vicryl runner to close the fascia. A 2-0 vicryl interuppted sutures were used to close the subcutaneous skin. A 3-0 Monocryl and Steri-Strips were used for final skin closure. A Silverlon dressing was placed. Patient was awakened by anesthesia and transferred to the [facility] the [facility]. Patient was then transferred to the PACU for recovery. During the course of the procedure the physician personal care aide (PE) played a vital role. Their intimate knowledge of my steps in the procedure aided in safe and expedient completion of the procedure. The PE played a vital rolls in positioning particularly in obtaining the appropriate positioning of the sacral bump. The PE was also vital in the retraction of soft tissues during the exposure and especially the femoral work as this is a vital part of the procedure to prevent complications and fractures. The PE was also vital and protecting soft tissues during times of bony cuts and reaming. He also played a vital role in closure with my direct supervision. The PE was also important during reduction and dislocation of the joint and trials intraoperatively. Postoperative plan: Patient will get 24 hours postop antibiotics. Patient will get in-house physical therapy and will be weight-bear as tolerated. Patient will follow up in office in 2 weeks for a wound check and x-rays. Aspirin 81 mg twice daily. Complications No intraoperative complications Admit VTE Documentation VTE Present on Admission: No VTE Mechan Device Prophylaxis: SCD's and Thigh High LÁZARO Hose VTE Pharm Prophylaxis ordered?: Yes
[2022-04-16] MEDS: Cefazolin 2 GM in 0.9% Normal Saline 100 ML IV (07:22)
--- NOTE | 2022-04-16 07:30 | RAD_ITS ---
STUDY: X-RAY - PELVIS AND LEFT HIP REASON FOR EXAM: Female, 71 years old. Intraoperative digital documentation views of the left total hip arthroplasty. TECHNIQUE: 4 intraoperative digital documentation views of the pelvis and hip. COMPARISON: None. FINDINGS: 4 intraoperative digital documentation., Showing placement of left arthroplasty. RAD/Hip 1 view with Pelvis IMPRESSION: Intraoperative digital documentation views as described. Electronically Signed: Salomón Felton MD at 9:37 EDT ,
--- NOTE | 2022-04-16 07:30 | HIP_PTH ---
PATIENT: SANTIAGO CHRISTIE LOC: [facility] [place] U#:[id number] AGE/SX: 71/F ROOM: RE04/16/[address]: Dr. Carter Cota MD : 1950 BED: DIS: 04/16/2022 SPEC #: [id number] RECD: 04/16/22 11:04 STATUS: ISALE MCKEON #: [id number] ANTHONY: 04/16/22 07:[address]: Carter Cota DEPT: SURGICAL PATHOLOGY RECD BY: Miranda Sanches ENTERED: 04/16/22 11:25 SP TYPE: TOTAL HIP OTHR DR: Dr. Bertrand Nicholas MD Tissues: Hip, NOS Procedures: Decalcification bone/plaque Surgery Specimen Level IV HEADER OPERATION: ERAS, total hip anterior approach PRE-OP DIAGNOSIS: Left hip primary osteoarthritis TISSUE SUBMITTED: Bone ? left hip MICROSCOPIC DIAGNOSIS Bone and tissue of left hip, total hip resection: Severe degenerative joint disease. AM:enoch 04/21/2022 MICROSCOPIC DESCRIPTION Slides are reviewed. GROSS DESCRIPTION Received is one container labeled with the patient's name and designated bone left hip. The specimen consists of a sharpe femoral head measuring 4.5 x 4.5 x 4.5 cm. The articular surface displays prominent osteophyte formation, eburnation and bone erosion. Also present in the specimen container are multiple irregular fragments of bone, reamings and pink-yellow soft tissue measuring in aggregate 10 x 9 x 2 cm. Boiler Control Room Operator sections are submitted in two cassettes as follows: 1 - soft tissue, 2 - bone after decalcification. / AM:enoch 04/16/2022 TC:5 CPT: 55039, 41207
[2022-04-16] MEDS: dexAMETHasone 10 MG/ML Vial IV (07:40)
[2022-04-16] MEDS: TXA 1000mg in NS100 100ml (IVPB at Incision) 660 MG IV (07:45)
[2022-04-16] MEDS: TXA 1000mg in NS100 100ml (IVPB at Closure) 660 MG IV (08:40)
--- NOTE | 2022-04-16 09:26 | EKG12_ITS ---
Test Reason : PVCS IN OR Blood Pressure : / mmHG Vent. Rate : 067 BPM Atrial Rate : 067 BPM P-R Int : 158 ms QRS Dur : 096 ms QT Int : 472 ms P-R-T Axes : 072 026 -42 degrees QTc Int : 498 ms Normal sinus rhythm Nonspecific T wave abnormality Prolonged QT Abnormal ECG When compared with ECG of 08-APR-2022 10:18, T wave inversion more evident in Inferior leads QT has lengthened Confirmed by TUTU SAHU, ZAKI ([id number]), international editorial producer KARINA BENDER ([id number]) on 04/22/2022 1:09:54 PM Referred By: Carter Cota Confirmed By:ZAKI CAM MD
[2022-04-16] MEDS: Lactated Ringers 1,000 ML 999 ML IV (09:31)
--- NOTE | 2022-04-16 09:40 | RAD_ITS ---
STUDY: X-RAY - PELVIS AND LEFT HIP REASON FOR EXAM: Female, 71 years old. New left total hip arthroplasty. TECHNIQUE: 2 views of the pelvis and hip. COMPARISON: Intraoperative digital documentation performed earlier in the day. FINDINGS: There is a total hip arthroplasty in anatomic alignment with expected post-operative findings. There are no complications noted. RAD/Hip Min 2 Views (Portable) IMPRESSION: Placement of total hip arthroplasty in anatomic alignment without complications. Electronically Signed: Salomón Felton MD at 9:58 EDT ,
[2022-04-16 09:50] LABS: Anion Gap 7 (5-15); BUN 9 mg/dL (7-18); Calcium,Total 8.3 mg/dL (8.5-10.1); Chloride 109 mmol/L (98-107); Creatinine, Serum 0.82 mg/dL (0.55-1.02); EST Glomerular Filtration Rate 73 mL/min (>60); Est Glom Filt Rate - Afr Amer 88 mL/min (>60); Estimated Creatinine Clearance 49.05 ml/min; Glucose 145 mg/dL (74-106); Potassium 3.5 mmol/L (3.5-5.1); Sodium Level 142 mmol/L (136-145)
[2022-04-16] MEDS: Lactated Ringers 1,000 ML 125 ML IV (10:52)
[2022-04-16] MEDS: oxyCODONE 5 MG Tablet PO (12:57)
== END 2022-04-16 14:29 | disposition home or self-care (01) ==
LOC: SDC 05:26 → AC 05:27
PROVIDERS: Anesthesiology; PCP Internal Medicine; Referring Provider Specialist; Visit Provider Specialist
PROC: (CPT 27284; principal; 2022-04-16 07:05)
DX: M16.12 Unilateral primary osteoarthritis, left hip (principal); E11.40 Type 2 diabetes mellitus with diabetic neuropathy, unspecified; F17.210 Nicotine dependence, cigarettes, uncomplicated; Z85.038 Personal history of other malignant neoplasm of large intestine; E03.9 Hypothyroidism, unspecified; E55.9 Vitamin D deficiency, unspecified; Z79.899 Other long term (current) drug therapy; Z90.49 Acquired absence of other specified parts of digestive tract; Z98.890 Other specified postprocedural states; M79.89 Other specified soft tissue disorders
CPT/HCPCS: 27130; 01214; 36415; 73501; 73502; 76000; 80048; 80076; 82962; 83735; 84443; 85025; 85610; 85730; 87081; 88305; 88311; 93005; 97162; C1776; J7120; J2405

== ENCOUNTER → 2022-04-24 | Outpatient (CLI) | payer MEDICARE, OTHER, SELFPAY ==
--- NOTE | 2022-04-24 08:14 | VDLE_ITS ---
Reason For Study: Pain Procedure LEFT This is a venous duplex using B-mode, color GSV is normal. flow and spectral Doppler. CFV is compressible, spontaneous, phasic, Exam performed in department. competent, and demonstrates normal A preliminary report was called and/or faxed augmentation. to [facility]. FV is compressible, spontaneous, phasic, competent and demonstrates normal augmentation. POP V is compressible, spontaneous, phasic, competent and demonstrates normal augmentation. T/P Trunk is compressible. PTV is compressible. LT PerV is compressible. VL/Venous Duplex US, Unilateral Interpretation Summary Deep veins of the left lower extremity are patent and compressible segmentally. There is no evidence of left lower extremity deep vein thrombosis. Valvular competence appears intac t within the proximal deep venous system on the left . The left great saphenous vein appears patent a nd compressible segmentally. Ordering Physician: Carter Cota Referring Physician: Bertrand Nicholas M.D. Performed By: Yael Beck RVT
== END | disposition home or self-care (01) ==
LOC: CVS 08:01
PROVIDERS: PCP Internal Medicine; Referring Provider Specialist; Visit Provider Specialist
DX: M79.662 Pain in left lower leg (principal); Z47.1 Aftercare following joint replacement surgery
CPT/HCPCS: 93971

== ENCOUNTER 2023-02-03 07:22 | Day surgery (SDC) | payer MEDICARE, SELFPAY ==
[2023-02-03] MEDS: Lactated Ringers 1,000 ML 15 ML IV (07:47)
[2023-02-03 07:48] VITALS: BP 153/72; PULSE 60; RESP 18; TEMP 36.4; O2SAT 100; BMI 29.2
--- NOTE | 2023-02-03 08:04 | HP.PCM_ITS ---
History and Physical Date of Admission: 02/03/23 Visit Reasons:?COLONOSCOPY Chief Complaint: colonoscopy Is patient in pain?: No Allergies adhesive Allergy (Verified 12/18/22 10:39) RashGadolinium-MRI Contrast Medium [DYE] Allergy (Verified 12/18/22 10:39) Anaphylaxisiodine Allergy (Verified 12/18/22 10:39) Rashpoison karla extract [Poison Karla Extract] Allergy (Verified 12/18/22 10:39) HivesEnvironmental Allergies: Uncoded [metal] Adverse Reaction (Verified 12/18/22 10:39) Rashmango Adverse Reaction (Verified 12/18/22 10:39) RashDILL PICKLE Allergy (Uncoded 12/18/22 10:39) Anaphylaxis Medications levothyroxine 50 mcg tablet 100 mcg PO DAILY 12/29/18 [History Confirmed 12/18/22] naproxen 500 mg tablet 500 mg PO DAILY 12/29/18 [History Confirmed 12/18/22] cholecalciferol (vitamin D3) 25 mcg (1,000 unit) tablet 2,000 unit PO BID 05/09/20 [History Confirmed 12/18/22] methylsulfonylmethane 1,000 mg capsule 1,000 mg PO BID 05/09/20 [History Confirmed 12/18/22] calcium 600 mg capsule 600 mg PO DAILY 03/31/22 [History Confirmed 12/18/22] multivitamin 1 cap PO DAILY 03/31/22 [History Confirmed 12/18/22] vitamin B12 1,000 mcg-folic acid 400 mcg sublingual tablet 1,000 tab sublingual DAILY 03/31/22 [History Confirmed 12/18/22] PFSH Medical History? Alcohol use Anemia Arthritis Back pain Blister Cancer Change in bowel habits Diabetes Dietary restriction Difficulty swallowing DJD (degenerative joint disease), cervical Easy bruising Feeling of sadness Former smoker History of echocardiogram History of stress test Hypothyroidism Leg cramps Loss of hearing Neuropathy Personal history of colon cancer Rosacea Shortness of breath on exertion Syncope Vitamin D deficiency Wears dentures Wears glasses Surgical History? Hx of colonoscopy Hx of total knee arthroplasty S/P colectomy S/P ear surgery S/P removal of ovarian cyst Status post laparoscopic cholecystectomy Family History? Mother Colon cancer Breast cancer Cancer ?? ? Skin cancerSister Colon cancerFather Heart disease Myocardial infarction Social History? Smoking Status:? Former smoker alcohol intake:? current alcohol intake frequency: a few times a week Alcohol type: wine substance use type:? does not use caffeine:? Yes HPI HPI HPI: 72-year-old female is being referred by Dr. Bertrand Nicholas for surgical screening colonoscopy as the patient has a personal history of colon cancer.? Written copy my surgical consult and recommendations will be returned to him.? I had assisted the patient with a laparoscopic sigmoid colectomy in 2009.? Her most recent colonoscopy was February 16, 2018 and I removed a hyperplastic polyp from the rectum.? She had also had a colonoscopy in 2013 with a small sessile polyp of the sigmoid colon removed. Laboratory of April 08, 2022 shows a white count of 5 with a hemoglobin 13.3 hematocrit 41 platelet count 241,000.? As of April 16, 2022 her BUN was 9 and creatinine 0.82.? Glucose was 145. Most recent CEA level that I have on her was June 29, 2014 at that time it was 2 She had a previous chest CT scan on January 03, 2019 because of a suspected left chest wall mass however the CAT scan was unremarkable and there was no metastatic disease identified. She had a abdominal pelvic CT scan obtained April 15, 2017 that showed scattered hepatic cysts scattered sigmoid diverticula. The patient has not need to see oncology since 1 year after her initial diagnosis. On today's visit she also has concerns about a subcutaneous mass volar aspect of her left hand third digit proximal phalanx ROS General General: Yes weight change, fatigue and colon cancer; No appetite, breast cancer or weakness HEENT HEENT: Yes difficulty swallowing; No eye injury, eye surgery, swollen glands or hoarseness Endo Endocrine: Yes thyroid disease; No diabetes mellitus, thyroid cancer, Hair loss, heat intolerance or cold intolerance Skin Skin: No rash or changing moles Musc Musculoskeletal: Yes back problems and arthritis; No rheumatoid arthritis, gout or joint pain Cardio Cardiovascular: No murmur, pacemaker, heart disease, atrial fibrillation, high blood pressure, heart attack, heart stent, palpitations, shortness of breat with exertion or chest pain Psych Psychiatric: No depression, anxiety or hearing voices Resp Respiratory: Yes shortness of breath, Yes sleep apnea, No cough, No COPD, No asthma, Yes emphysema and No wheezing Gastro Gastrointestinal: Yes abdominal pain, No nausea or vomiting, Yes diarrhea, Yes constipation, No blood in stool, No acid reflux, No hemorrhoids, No ulcers, No gallbladder problem and No black,tarry stools Nils Hematologic: No blood thinners, No blood disorders, No bleeding, No anemia and No blood clots Neuro Neurologic: No system reviewed and no additional complaints, except as documented, No as per HPI, No abnormal gait, No abnormal hearing, No abnormal movements, No abnormal speech, No behavioral changes, No burning sensations, No confusion, No convulsions, No disequilibrium, No dizziness, No localized weakness, No frequent falls, No headache(s), No lack of coordination, No loss of vision, No memory loss, Yes numbness, No other visual disturbances, No radicular pain, No restless legs, No sensory deficit, No syncope, Yes tingling, No tremor(s), No weakness and No other Exam Const General: cooperative, comfortable and no acute distress Orientation: alert [facility] Head: normal to inspection Eyes General: appearance normal, both eyes and all related structures Neck Neck: normal visual inspection Resp Effort & Inspection: normal respiratory effort Auscultation: clear to auscultation bilaterally Cardio Rate: regular rate Rhythm: regular rhythm GI Inspection: normal to inspection Palpation: soft and no hepatosplenomegaly Skin General: no rashes or lesions noted Neuro General: patient alert, patient awake and patient oriented x3 Extrem Other: Left hand third digit volar proximal phalanx 1 cm diameter subcutaneous mass with slight deep fixation but mobility noted no numbness or tingling good range of motion in flexion Assessment and Plan Assessment and Plan (1) Personal history of colon cancer: ?Status:?Acute ?Plan: Copy: Dr. Bertrand Chiu M.D., F.A.C.S. (2) Subcutaneous mass of finger of left hand: ?Status:?Acute ?Plan: I recommended the patient a screening colonoscopy with possible biopsy or polypectomy as indicated.? She has had a personal history of colon cancer.? Previous colonoscopy was February 2018.? She is aware of the technique, benefit, risk of alternatives I recommend a excision of the subcutaneous mass left hand third digit volar proximal phalanx.? Anticipate doing this in the operating room with a [place] block anesthesia.? Anticipate possible giant cell tumor or neuroma.? Some mobility is noted.? The patient is very much aware of technique, benefit, risk, alternatives.? No guarantees of success have been offered. We will schedule and proceed at her discretion. Janes Chiu M.D., F.A.C.S The patient has a personal history of colon cancer. She is presenting today for a colonoscopy. She is had an opportunity to ask and have questions answered. We will proceed as noted. There is been no change in her history and physical. Janes Chiu M.D., F.A.C.S.
--- NOTE | 2023-02-03 08:42 | OP.COLON_ITS ---
Patient Name: Julianne Ku Procedure Date: 02/03/2023 8:04 AM Date of : 1950 Age: 72 Procedure: Colonoscopy Indications: High risk colon cancer surveillance: Personal history of colon cancer Providers: Janes Chiu MD Medicines: See the Anesthesia note for documentation of the administered medications Patient Profile: Last Colonoscopy: February 2018. Complications: No immediate complications. Procedure: Pre-Anesthesia Assessment: - Prior to the procedure, a History and Physical was performed, and patient medications and allergies were reviewed. The patient's tolerance of previous anesthesia was also reviewed. The risks and benefits of the procedure and the sedation options and risks were discussed with the patient. All questions were answered, and informed consent was obtained. Prior Anticoagulants: The patient has taken no previous anticoagulant or antiplatelet agents. ASA Grade Assessment: II - A patient with mild systemic disease. After reviewing the risks and benefits, the patient was deemed in satisfactory condition to undergo the procedure. After I obtained informed consent, the scope was passed under direct vision. Throughout the procedure, the patient's blood pressure, pulse, and oxygen saturations were monitored continuously. The pediatric colonoscope was introduced through the anus and advanced to the cecum, identified by appendiceal orifice and ileocecal valve. The colonoscopy was somewhat difficult due to a tortuous colon. Successful completion of the procedure was aided by applying abdominal pressure. The patient tolerated the procedure well. The quality of the bowel preparation was adequate to identify polyps. The ileocecal valve and the appendiceal orifice were photographed. Scope In: 8:15:38 AM Scope Withdrawal Time 0 hours 7 minutes 21 seconds Scope Out: 8:36:58 AM Total Procedure Duration Time 0 hours 21 minutes 20 seconds Findings: Hemorrhoids were found on perianal exam. There was evidence of a prior end-to-end colo-colonic anastomosis in the distal sigmoid colon. This was patent and was characterized by healthy appearing mucosa. The colon (entire examined portion) was moderately tortuous. Advancing the scope required using manual pressure. Impression: - Hemorrhoids found on perianal exam. - Patent end-to-end colo-colonic anastomosis, characterized by healthy appearing mucosa. - Tortuous colon. - No specimens collected. Recommendation: - Discharge patient to home. - Resume previous diet. - Continue present medications. - Repeat colonoscopy in 5 years for surveillance. Procedure Code(s): --- Professional --- 11190, Colonoscopy, flexible; diagnostic, including collection of specimen(s) by brushing or washing, when performed (separate procedure) Diagnosis Code(s): --- Professional --- Z85.038, Personal history of other malignant neoplasm of large intestine K64.9, Unspecified hemorrhoids Z98.0, Intestinal bypass and anastomosis status Q43.8, Other specified congenital malformations of intestine CPT copyright 2017 [employer]. All rights reserved. The codes documented in this report are preliminary and upon escrow assistant review may be revised to meet current compliance requirements. Janes Chiu MD 02/03/2023 8:41:55 AM This report has been signed electronically. Number of Addenda: 0 Note Initiated On: 02/03/2023 8:04 AM
--- NOTE | 2023-02-03 08:43 | OP.CCLET_ITS ---
02/03/2023 Bertrand Nicholas [address] [place] [address] Re : Colonoscopy procedure for Julianne Ku Dear Dr. Nicholas This procedure was performed on Friday, February 03, 2023. My impressions and recommendations are as follows: Impressions : - Hemorrhoids found on perianal exam. - Patent end-to-end colo-colonic anastomosis, characterized by healthy appearing mucosa. - Tortuous colon. - No specimens collected. Recommendations : - Discharge patient to home. - Resume previous diet. - Continue present medications. - Repeat colonoscopy in 5 years for surveillance. My findings are described in the full procedure note, which is enclosed. If I can be of further assistance, please feel free to contact me at Doctor phone number(s): Work: . Sincerely, Janes Chiu MD 02/03/2023 8:41:55 AM This report has been signed electronically.
[2023-02-03 08:45] VITALS: BP 153/72; BP 99/52; PULSE 64; RESP 16; TEMP 36.7; O2SAT 98
[2023-02-03 08:50] VITALS: BP 102/62; BP 153/72; PULSE 65; RESP 16; O2SAT 100
[2023-02-03 08:55] VITALS: BP 111/59; BP 153/72; PULSE 60; RESP 16; O2SAT 100
[2023-02-03 09:00] VITALS: BP 109/63; BP 153/72; PULSE 55; RESP 16; TEMP 36.6; O2SAT 100
[2023-02-03 09:14] VITALS: BP 153/72
== END 2023-02-03 09:40 | disposition home or self-care (01) ==
LOC: EN 07:23 → AC 07:23
PROVIDERS: PCP Internal Medicine; Referring Provider Surgery; Visit Provider Surgery
PROC: 0DJD8ZZ Inspection of Lower Intestinal Tract, Via Natural or Artificial Opening Endoscopic (ICD-10-PCS; CPT 45378; principal; 2023-02-03 08:10)
DX: Z12.11 Encounter for screening for malignant neoplasm of colon (principal); K64.9 Unspecified hemorrhoids; Z87.891 Personal history of nicotine dependence; Z98.0 Intestinal bypass and anastomosis status; Q43.8 Other specified congenital malformations of intestine; Z85.038 Personal history of other malignant neoplasm of large intestine
CPT/HCPCS: 45378; J7120; J2405

== ENCOUNTER 2025-01-04 08:45 | Emergency (ER) | payer MEDICARE, SELFPAY ==
[2025-01-04 08:46] VITALS: BP 152/79; PULSE 76; RESP 15; TEMP 36.3; O2SAT 96; BMI 28.3
--- NOTE | 2025-01-04 09:23 | EX.ED.DYSGE1 ---
HPI History of Present Illness Chief Complaint: Other, Pain/Inj Informant: patient Narrative Narrative: Patient is a 74-year-old female present for atraumatic neck and now back pain. Patient states 4 days ago she developed pain on the left side of her neck. States it felt like a crick in her neck. She states 2 days ago the pain started to move to her bilateral upper back/shoulders. States she has had pain from shoulder to shoulder. The last 2 mornings she is taking her 20 minutes just to get out of bed because of she is too painful for her body to support the weight of her head getting up. At midnight last night (approximately 9 hours ago) she took an oxycodone which did help her sleep however she dozed off in the chair with her head tilted down. Now she is having even more pain. She normally takes naproxen 500 mg twice a day for her arthritis and he states normally helps. She did run out of that and she is going to get a refill from her primary care doctor. This morning when she woke up she did have some chills. She has chronic nasal congestion and sometimes when she blows her nose there is blood in her nose but this is not new. She has any hearing changes. She denies hearing any whooshing sounds or any abnormal noises in her ears. She is not any blood thinners. Denies associate numbness or tingling. She denies chest pain but does report some chest wall pain but states it feels against coming from her shoulders/muscles in her back. [facility] Medical History Post-menopausal Sleep apnea Asthma Loss of hearing Wears glasses Wears dentures Cancer Feeling of sadness Alcohol use Blister Diabetes Arthritis Easy bruising Back pain Dietary restriction Syncope Difficulty swallowing Former smoker Shortness of breath on exertion Leg cramps Neuropathy History of echocardiogram History of stress test Change in bowel habits Vitamin D deficiency Rosacea Hypothyroidism DJD (degenerative joint disease), cervical Anemia Personal history of colon cancer Home Medications ?Medication ?Instructions ?Recorded ?Last Taken ?Type levothyroxine 50 mcg tablet 100 mcg PO DAILY 12/29/18 02/03/23 History terbinafine HCl 250 mg tablet 250 mg PO DAILY fungus infection 01/30/23 Unknown History naproxen 500 mg tablet 500 mg PO DAILY #60 tabs 01/04/25 05/18/20 Rx tizanidine 2 mg tablet 2 mg PO Q8H PRN muscle spasticity 01/04/25 Unknown Rx #14 tabs Allergy/AdvReac Type Severity Reaction Status Date / Time adhesive Allergy Rash Verified 01/04/25 08:48 Food Allergies: Uncoded Allergy Anaphylaxis Verified 01/04/25 08:48 Gadolinium-MRI Contrast Allergy Anaphylaxis Verified 01/04/25 08:48 Medium (DYE) iodine Allergy Rash Verified 01/04/25 08:48 poison karla extract (Poison Allergy Hives Verified 01/04/25 08:48 Karla Extract) Environmental Allergies: AdvReac Rash Verified 01/04/25 08:48 Uncoded (metal) skylar AdvReac Rash Verified 01/04/25 08:48 Family History Mother Colon cancer Breast cancer Cancer Skin cancer Sister Colon cancer Father Heart disease Myocardial infarction Surgical History History of total right knee replacement Hx of total knee arthroplasty S/P ear surgery Hx of colonoscopy S/P removal of ovarian cyst Status post laparoscopic cholecystectomy S/P colectomy Social History Smoking Status: Former smoker second hand exposure: No alcohol intake: current alcohol intake frequency: a few times a week Alcohol type: wine substance use type: does not use caffeine: Yes ROS ROS ED Constitutional Constitutional ED: Reports chills; Denies fever(s) Eyes Eyes: Denies blurry vision or change in vision ENT ENT ED: Denies ear pain, rhinorrhea or sore throat Cardiovascular Cardiovascular: Denies chest pain Respiratory/Chest Respiratory/Chest: Denies cough or dyspnea Gastrointestinal Gastrointestinal: Denies abdominal pain, nausea or vomiting Musculoskeletal Musculoskeletal: Reports arthralgias, back pain and neck pain; Denies myalgias Integumentary Denies rash Neurologic Neurologic: Reports headache(s); Denies paresthesias or weakness Psychiatric Psychiatric: Denies anxiety Hematologic/Lymphatic Hematologic/Lymphatic: Denies easy bleeding or easy bruising EXAM Physical Exam Const Vital Signs: 01/04/25 08:46 01/04/25 09:19 01/04/25 12:45 Temperature 97.4 F L Temperature Source Temporal Pulse Rate 76 Respiratory Rate 15 Respiratory Effort Normal Non-Labored Blood Pressure 152/79 H 152/79 H Blood Pressure Mean 103 103 Pulse Ox 96 Oxygen Delivery Method Room Air 01/04/25 13:18 Temperature 97.4 F L Temperature Source Pulse Rate 76 Respiratory Rate 15 Respiratory Effort Blood Pressure 152/79 H Blood Pressure Mean 103 Pulse Ox 96 Oxygen Delivery Method Positive well nourished and well developed General Appearance ED: well developed and NAD HEENT Reports TM's clear and moist mucous membranes Tympanic Membrane ED: Yes TM's clear Eyes PERRL Neck supple and no JVD Neck Narrative: No midline bony tenderness. Patient does have bilateral paraspinal tenderness to palpation. She has decreased range of motion secondary to pain. Has a hard time rotating her head because it hurts in the back of her neck. General: tenderness Chest Wall inspection of chest normal and palpation of chest normal Resp normal respiratory effort and clear to auscultation bilaterally Cardio regular rate and regular rhythm GI normal to inspection, nondistended, normoactive bowel sounds and non-tender Back/Spine Back/Spine Narrative: Tenderness to palpation of the bilateral trapezius, slightly worse on the right compared to the left. 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 Sensorium / Orientation: alert Motor Exam: strength 5/5 throughout; Negative for general weakness Psych mental status grossly normal Skin no rashes or lesions noted and no wounds MDM MDM MDM Narrative Medical decision making narrative: Patient evaluated for neck pain that is now moved to bilateral upper thoracic pain. Suspect this is spasm based on her physical exam and HPI. Denies any associated injuries or trauma. Denies any real systemic symptoms with it. She is not having midline tenderness I do not think requires any imaging. Vital signs largely normal (blood pressure mildly elevated at 152/79). She has equal pulses and strength in her extremities I do not think this is vascular. Reports history of CKD so we will check a BMP before sending her home with a refill of her naproxen. In the meantime we will give a dose of Toradol x 1 as well as Lidoderm patch. Patient reevalauted she is feeling improved. Range of motion of the neck has improved. She took a nap in the emergency room. Does continue to have pain. Will be discharged home with a short course of tizanidine as well as a refill for naproxen. Kidney function is normal with a GFR of 77. Instructed also use [id number] Lidoderm patches. She is comfortable this plan of care. Given return precautions. Is counseled on the risk of increased confusion, unsteadiness and falls associate with muscle relaxers. Lab Data Labs: Laboratory Results - last 24 hr 01/04/25 09:05 Sodium 136 Potassium 3.7 Chloride 104 Carbon Dioxide 26.0 Anion Gap 6 BUN 14 Creatinine 0.77 Estim Creat Clear Calc 58.00 Est GFR (MDRD) Af Amer 94 Est GFR (MDRD) Non-Af 77 BUN/Creatinine Ratio 18.1 Glucose 102 Calcium 9.2 Discharge Plan Triage Chief Complaint: Other, Pain/Inj ED Provider: Jaye Cazares Dx/Rx/DC Orders Clinical Impression: Torticollis, Spasm of thoracic back muscle Instructions: ED Back Spasm, No Trauma Prescriptions: New tizanidine 2 mg tablet 2 mg PO Q8H PRN (Reason: muscle spasticity) Qty: 14 0RF Continued naproxen 500 mg tablet 500 mg PO DAILY Qty: 60 0RF No Action levothyroxine 50 mcg tablet 100 mcg PO DAILY terbinafine HCl 250 mg Tablet 250 mg PO DAILY Primary Care Provider: Bertrand Nicholas Referrals: Bertrand Nicholas MD [Primary Care Provider] - Activity Restrictions/Additional Instructions: You may also use [id number] Lidoderm patches (I recommend 4% Exer strength Salonpas). Try to continue to push fluids. Please be aware that the muscle relaxer prescribed today can increase the risk of confusion, unsteadiness and falls. Do not mix prescription pain medication such as oxycodone with muscle relaxers. Print Language: Bengali Disposition Disposition: Home, Self Care Discharge Date/Time: 01/04/25 13:21
[2025-01-04 09:50] LABS: Anion Gap 6 (5-15); BUN 14 mg/dL (7-18); BUN/Creat Ratio 18.1 RATIO (10-20); Calcium,Total 9.2 mg/dL (8.5-10.1); Chloride 104 mmol/L (98-107); Creatinine, Serum 0.77 mg/dL (0.55-1.02); EST Glomerular Filtration Rate 77 mL/min (>60); Est Glom Filt Rate - Afr Amer 94 mL/min (>60); Glucose 102 mg/dL (74-106); Potassium 3.7 mmol/L (3.5-5.1); Sodium Level 136 mmol/L (136-145)
[2025-01-04] MEDS: Lidocaine 5% Patch 1 PATCH TOPICAL (10:20)
[2025-01-04] MEDS: Ketorolac 15 MG/ML Vial IV (10:20)
[2025-01-04 12:45] VITALS: BP 152/79
[2025-01-04 13:18] VITALS: BP 152/79; PULSE 76; RESP 15; TEMP 36.3; O2SAT 96
== END 2025-01-04 13:21 | disposition home or self-care (01) ==
PROVIDERS: Emergency Provider Emergency Medicine; PCP Internal Medicine; Visit Provider Emergency Medicine
DX: M43.6 Torticollis (principal); E11.40 Type 2 diabetes mellitus with diabetic neuropathy, unspecified; M62.830 Muscle spasm of back; R09.81 Nasal congestion; M19.90 Unspecified osteoarthritis, unspecified site; Z79.1 Long term (current) use of non-steroidal anti-inflammatories (NSAID); Z87.891 Personal history of nicotine dependence; Z85.038 Personal history of other malignant neoplasm of large intestine; E03.9 Hypothyroidism, unspecified; Z90.49 Acquired absence of other specified parts of digestive tract
CPT/HCPCS: 80048; 96374; 99283; A4216

== ENCOUNTER 2025-02-27 18:38 | Emergency (ER) | payer MEDICARE, SELFPAY ==
[2025-02-27 18:39] VITALS: BP 141/77; PULSE 87; RESP 16; TEMP 36.6; O2SAT 97; BMI 28.3
--- NOTE | 2025-02-27 21:22 | CT_ITS ---
PROCEDURE: BRAIN/HEAD WITHOUT CONTRAST 02/27/2025 REASON FOR EXAM: HEAD LACERATION TECHNIQUE: Head CT without intravenous contrast. Coronal and Sagittal reconstruction series were provided. One or more dose reduction techniques were used (e.g., Automated exposure control, adjustment of the mA and/or kV according to patient size, use of iterative reconstruction technique. RADIATION DOSE SUMMARY: CTDlvol: 47 mGy DLP: 907 mGycm COMPARISON: None FINDINGS: Brain: Within normal limits for age CSF Spaces: Mild generalized cerebral atrophy Sinuses/Mastoids: Clear at visualized levels Bones: No acute fracture. Soft tissue laceration of the left frontal scalp CT/Brain/Head without Contrast IMPRESSION: Soft tissue laceration of the left frontal scalp. No acute intracranial hemorr mally. Reading Location: [facility]
[2025-02-27] MEDS: Lidocaine/Epi/Tetracaine 50 ML 1 APPLIC TOPICAL (22:11)
[2025-02-27 22:15] VITALS: BP 141/66; PULSE 74; RESP 18; O2SAT 99
--- NOTE | 2025-02-27 22:39 | EX.ED.GENINJ ---
HPI History of Present Illness Chief Complaint: Head Injury Informant: patient Onset/Context/Timing Onset: Today Mechanism/Context: Fall Quality of Pain: Burning Location: Left forehead, left shoulder, left hand Worsened by: Palpation Relieved by: Nothing Associated Symptoms Associated Symptoms: Negative for Parasthesias, Weakness, Loss of function, Inability to ambulate, Loss of consciousness or Amnesia Narrative Narrative: Patient presents with a head injury that occurred today. Patient states she was walking her dogs when the dog saw a squirrel and pulled her down. Patient states she landed on her left side. Patient complains of pain in her left hand, left elbow, left shoulder, and left forehead. Patient has a laceration above her left eyebrow. The patient denies any loss of consciousness. Patient states that she had to be helped up but was able to stand and ambulate after the fall. Patient denies any paresthesias or weakness. Patient states her last tetanus was within 5 years. Tetanus Immunization: <5 years [facility] Medical History Post-menopausal Sleep apnea Asthma Loss of hearing Wears glasses Wears dentures Cancer Feeling of sadness Alcohol use Blister Diabetes Arthritis Easy bruising Back pain Dietary restriction Syncope Difficulty swallowing Former smoker Shortness of breath on exertion Leg cramps Neuropathy History of echocardiogram History of stress test Change in bowel habits Vitamin D deficiency Rosacea Hypothyroidism DJD (degenerative joint disease), cervical Anemia Personal history of colon cancer Home Medications ?Medication ?Instructions ?Recorded ?Last Taken ?Type levothyroxine 50 mcg tablet 100 mcg PO DAILY 12/29/18 02/03/23 History terbinafine HCl 250 mg tablet 250 mg PO DAILY fungus infection 01/30/23 Unknown History naproxen 500 mg tablet 500 mg PO DAILY #60 tabs 01/04/25 05/18/20 Rx tizanidine 2 mg tablet 2 mg PO Q8H PRN muscle spasticity 01/04/25 Unknown Rx #14 tabs amlodipine 5 mg tablet 5 mg PO DAILY 02/27/25 Unknown History Allergy/AdvReac Type Severity Reaction Status Date / Time adhesive Allergy Rash Verified 02/27/25 18:43 Food Allergies: Uncoded Allergy Anaphylaxis Verified 02/27/25 18:43 Gadolinium-MRI Contrast Allergy Anaphylaxis Verified 02/27/25 18:43 Medium (DYE) iodine Allergy Rash Verified 02/27/25 18:43 poison karla extract (Poison Allergy Hives Verified 02/27/25 18:43 Karla Extract) Environmental Allergies: AdvReac Rash Verified 02/27/25 18:43 Uncoded (metal) skylar AdvReac Rash Verified 02/27/25 18:43 Family History Mother Colon cancer Breast cancer Cancer Skin cancer Sister Colon cancer Father Heart disease Myocardial infarction Surgical History History of total right knee replacement Hx of total knee arthroplasty S/P ear surgery Hx of colonoscopy S/P removal of ovarian cyst Status post laparoscopic cholecystectomy S/P colectomy Social History Smoking Status: Former smoker second hand exposure: No alcohol intake: current alcohol intake frequency: a few times a week Alcohol type: wine substance use type: does not use caffeine: Yes ROS ROS ED Constitutional Constitutional ED: Denies chills or fever(s) Eyes Eyes: Denies blurry vision or change in vision ENT ENT ED: Denies rhinorrhea or sore throat Cardiovascular Cardiovascular: Denies chest pain or palpitations Respiratory/Chest Respiratory/Chest: Denies cough or dyspnea Gastrointestinal Gastrointestinal: Denies nausea or vomiting Genitourinary Genitourinary ED: Denies dysuria or hematuria Musculoskeletal Musculoskeletal: Reports neck pain; Denies back pain Integumentary Denies abscess or rash Neurologic Neurologic: Reports headache(s); Denies weakness Allergic/Immunologic Allergic/Immunologic ED: Denies mouth swelling or urticaria EXAM Physical Exam Const Vital Signs: 02/27/25 18:39 02/27/25 22:15 Temperature 97.9 F Temperature Source Oral Pulse Rate 87 74 Respiratory Rate 16 18 Blood Pressure 141/77 H 141/66 H Blood Pressure Mean 98 91 Pulse Ox 97 99 Oxygen Delivery Method Room Air Room Air Positive well nourished and well developed General Appearance ED: well developed and NAD HEENT HEENT Narrative: There is a 3.5 cm full-thickness laceration above the left eyebrow. There is moderate gapping of the wound margins. There is no active bleeding noted. There are no foreign bodies noted. There is no bony crepitance or step-off noted. Eyes PERRL and EOMs intact bilaterally Resp normal respiratory effort and clear to auscultation bilaterally Cardio regular rhythm Rate: regular rate GI non-tender and non-distended Palpation: soft Extremity Extremity Narrative: There is some mild edema and ecchymosis over the distal phalanx of the left fifth finger. There is good range of motion. There is minimal tenderness over the left elbow and left shoulder. There is good range of motion of both the left elbow and left shoulder. There is no deformity noted. Radial pulses are equal bilaterally. Strength is 5/5 bilateral in the upper extremities. There are no sensory deficits noted. General Extremety ED: Negative for deformity General Extremity: Negative for deformity Neuro oriented x3, CN's II-XII intact bilaterally, moves all extremities, no focal motor deficits and no sensory deficits noted Como Coma Scale: document GCS findings Spontaneous Obeys Commands Oriented 15 Sensorium / Orientation: alert Motor Exam: strength 5/5 throughout Psych mental status grossly normal and thought process normal Skin Skin Narrative: There is noted an abrasion over the dorsal aspect of the left 4th and 5th fingers. There is no active bleeding noted. There is also an abrasion over the olecranon process of the left elbow. There is no active bleeding noted. There are no foreign bodies noted. PROC Procedures Lacerations Left forehead: Length: 3.5 cm Depth: Sub Q Shape: Linear Prep: Sterile Conditions and Chlorhexadine Laceration repair: Irrigated, Lidocaine with epi, Local, Skin sutures and Wound explored Irrigated (ml): 60 Number of Sutures/[place]: 7 Suture Information: Ethilon, Simple and 5-0 MDM [facility] MDM Narrative Medical decision making narrative: Differential diagnosis includes intracranial bleeding, closed head injury, and contusions. CT scan of the brain will be obtained to assess for intracranial bleeding. Radiography Diagnostic Testing: Clinical Impression(s) from Imaging Studies Brain CT 02/27/25 21:22 IMPRESSION: Soft tissue laceration of the left frontal scalp. No acute intracranial hemorrhage. [facility] scan of the brain was obtained. There is no acute intracranial abnormality. There is a soft tissue laceration of the left forehead. This was interpreted by the radiologist and was also independently reviewed by myself. Treatment and Re-Evaluation Narrative: The patient was advised of her findings. Patient was advised of the need for laceration repair. Patient is agreeable with this. The wound was cleaned and irrigated with copious amounts of normal saline. The wound was anesthetized with 1% lidocaine with epinephrine locally. The wound was closed with 7 simple interrupted #5-0 nylon sutures under sterile technique. Patient tolerated the procedure well. Bacitracin dressing was applied. Patient was instructed to keep the wound clean and dry. Patient was instructed to follow-up with her primary care physician in 5 days for wound recheck and suture removal. Patient understood and was agreeable with plan. All questions were answered. Discharge Plan Triage Chief Complaint: Head Injury ED Provider: Dell Hein Dx/Rx/DC Orders Clinical Impression: Laceration of skin of forehead, Abrasion of left hand and fingers, Abrasion of left elbow, initial encounter, Fall Instructions: ED Head Injury (Adult), ED Laceration Minimize Scars Prescriptions: No Action levothyroxine 50 mcg tablet 100 mcg PO DAILY terbinafine HCl 250 mg Tablet 250 mg PO DAILY tizanidine 2 mg tablet 2 mg PO Q8H PRN (Reason: muscle spasticity) Qty: 14 0RF naproxen 500 mg tablet 500 mg PO DAILY Qty: 60 0RF amlodipine 5 mg tablet 5 mg PO DAILY Primary Care Provider: Bertrand Nicholas Referrals: Bertrand Nicholas MD [Primary Care Provider] - 5 Days for suture removal Print Language: Slovak Disposition Disposition: Home, Self Care
[2025-02-27] MEDS: Lidocaine 1% /Epi 1:100 (20ml) 20 ML Vial INFILT (22:45)
[2025-02-27 23:28] VITALS: BP 141/66; PULSE 74; RESP 18; TEMP 36.6; O2SAT 100; O2SAT 99
== END 2025-02-27 23:35 | disposition home or self-care (01) ==
PROVIDERS: Emergency Provider Emergency Medicine; PCP Internal Medicine; Visit Provider Emergency Medicine
DX: S01.112A Laceration without foreign body of left eyelid and periocular area, initial encounter (principal); E11.9 Type 2 diabetes mellitus without complications; S50.312A Abrasion of left elbow, initial encounter; Z87.891 Personal history of nicotine dependence; S60.512A Abrasion of left hand, initial encounter; W18.30XA Fall on same level, unspecified, initial encounter; Y93.K1 Activity, walking an animal; E03.9 Hypothyroidism, unspecified; Z79.890 Hormone replacement therapy; Z96.651 Presence of right artificial knee joint; Z90.49 Acquired absence of other specified parts of digestive tract; S60.417A Abrasion of left little finger, initial encounter
CPT/HCPCS: 12013; 70450; 99284

== ENCOUNTER 2025-09-05 17:30 | Outpatient (RCR) | payer MEDICARE, SELFPAY ==
--- NOTE | 2025-08-10 18:34 | HP.PTEVAL_ITS ---
Patient's Visit Information Visit Information Visit Information: SANTIAGO CHRISTIE is a 74 year old F referred to Physical Therapy by Dr. Carter Cota MD with a diagnosis of contusion L hip. Date of Evaluation: 08/10/25 Physical Therapist: Dell Rai, DPT, OCS, CSCS Visit Plan Frequency: 2-3x /Week Duration: 4-6 Weeks Plan: 2-3x/week for 4 weeks for: IEHEP: supine strap ITB and prone quad streetch 30 4x L at le[place]. walk within abilities daily. treat with MH L hip itb, rollout to same, stretch same(h/o anteerior L hip JESSICA) and leg pull, ROM, strength L hip mat to stand. progress HEP Subjective Subjective: L hip surgery adn B knee surgery in her past. Fell in march and landed on L hip while walking dog while admiring the day and dog pulled simon down. landed on L hip and got 7 stitchs on foreheead. bruised but no real pain. Pain started in the last 3 weks though laterally L hip. Tender to touch. Hurts to bend, Hurt to get out of chair. Gtting out of car is painful. Limping with ambulation adn sore. Comfortable at rest. Surgery was 2021 JESSICA L. Not suree what started the pain 3 weeks ago. Sleep is not inerrupted. Activities: avoids carrying out garbage, taking things to garage but can do it but painful, Putting on socks bending is terrible. In and out of bathtub stepping hurts, will geet a walk in shower. Dr. Díaz said implant is in the right spot and looked good under x ray. bruising on inside. No regular exercises. Walks regularly 1.5 to 2.5 miles but not since fall. Tried to walk yesterday but it hurt more. 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 I gait. Steps reciprocally with one rail I without pain. Chair and bed trasnfer with pain L hip I. ankl aROM WFL. Knees 0-98 B stiff. Hips 90 L and 100 R stiff but not pianful, er 35 L adn 40 R with L hip pain, IR 15 B. ext 0 B. weakness in hip extension, hip abduction, L 3, 3+ R. strength in hips 3+/5 fleiona dn ext. reflexes 1/3 patella dn achilles B sensation LE WNL to grss light touch. Tender max on L ITB and GT slightly into piriformis area. Balance/Special Test Scores Lower Extremity Functional Score: 8 Goals Goal 1:: Pain in L hip 2/10 at worst adn 80% better Goal Time Frame: 4-6 Weeks Goal 2:: Exit car and chair without pain in L hip Goal Time Frame: 4-6 Weeks Goal 3:: Tenderness L GT min at most and tolerable Goal Time Frame: 4-6 Weeks Goal 4:: LEFS score 30 Goal Time Frame: 4-6 Weeks Goal 5:: I appropriate HEP to managee condition. Goal Time Frame: 4-6 Weeks Rehabilitation Potential Physical Therapy Diagnosis: L hip pain and limited ROM adn strength prolonging healing process and limitingcomfortable funciton. Rehabilitation Potential: Fair Anticipated Interventions Patient/Client Instruction: Educate patient on: Condition and Plan of Care For the Purpose of:: To decrease pain, To increase ROM, To improve nutrient delivery to tissue, To increase tolerance to activity/condition/position and To improve ability of physical actions for home/community/work/leisure Therapeutic Exercise to Include: Strength training, Flexibilty training, Gait and locomotor training, Passive ROM and Active ROM For the Purpose of:: To decrease pain, To increase ROM, To improve nutrient delivery to tissue, To improve muscle performance and motor function and To increase tolerance to activity/condition/position Manual Therapy Techniques to Include: Mobilization, Passive ROM and Soft tissue mobilization For the Purpose of:: To decrease pain, To increase ROM and To improve nutrient delivery to tissue Thermo therapy (hot pack): Yes Ultrasound (thermal/non thermal): Yes For the Purpose of:: To decrease pain, To increase ROM and To improve nutrient delivery to tissue Text: Thank you for the opportunity to evaluate your patient. For Medicare and Medicare HMO plans, please review the plan of care and approve it. It will need to be FAXED BACK to us at [phone] for Medicare purposes. For Medicare only, by signing this I certify the plan of care. Please let me know if there are questions or concerns regarding this plan of care. Physician Signature: Date:
--- NOTE | 2025-10-19 15:29 | HP.PT.NRP ---
Patient Information Patient Information: SANTIAGO CHRISTIE was seen in my office for initial evaluation on 08/10/25. The following Plan of Care was established for this patient: POC Established Initial Frequency: 2-3x /Week Initial Duration: 4-6 Weeks Anticipated Interventions Patient/Client Instruction: Educate patient on: Condition and Plan of Care For the Purpose of:: To decrease pain, To increase ROM, To improve nutrient delivery to tissue, To increase tolerance to activity/condition/position and To improve ability of physical actions for home/community/work/leisure Therapeutic Exercise to Include: Strength training, Flexibilty training, Gait and locomotor training, Passive ROM and Active ROM For the Purpose of:: To decrease pain, To increase ROM, To improve nutrient delivery to tissue, To improve muscle performance and motor function and To increase tolerance to activity/condition/position Manual Therapy Techniques to Include: Mobilization, Passive ROM and Soft tissue mobilization For the Purpose of:: To decrease pain, To increase ROM and To improve nutrient delivery to tissue Thermo therapy (hot pack): Yes Ultrasound (thermal/non thermal): Yes For the Purpose of:: To decrease pain, To increase ROM and To improve nutrient delivery to tissue Last Seen Last Seen: This patient was last seen in our office 09/12/25. Pertinent comments regarding their Physical therapy will appear below: Pt seen for 6 visits of POC and then did not atteend any further visits. At this point, it has been over a month adn I will disocntinue due to nonattendance. At this point I will be discontinuing this patient from physical therapy. I would be happy to see this patient again in the future if found appropriate by the physician. Thank you! Dell Rai, DPT, OCS, CSCS Balance/Gait/Functional tests Balance/Special Test Scores Lower Extremity Functional Score: 8
== END 2025-09-05 19:00 | disposition home or self-care (01) ==
LOC: PT 17:30
PROVIDERS: PCP Internal Medicine; Referring Provider Specialist; Visit Provider Specialist
DX: S70.02XD Contusion of left hip, subsequent encounter (principal)
CPT/HCPCS: 97110; 97140; 97162